=== PATIENT | female | born 1955 | race Caucasian/White ===

== ENCOUNTER 2020-09-07 09:09 | Outpatient (REF) | payer MEDICARE, OTHER, SELFPAY ==
--- NOTE | ~2020-09-07 | CT_ITS ---
EXAMINATION: CT LUMBAR SPINE WITHOUT CONTRAST CLINICAL INFORMATION: Low back and left hip pain. COMPARISON: None TECHNIQUE: Axial 2 mm thin and reformatted 2 mm thin sagittal and coronal images of lumbar spine were obtained. This CT examination was performed using dose optimization techniques as appropriate, variously including the following: *Automated exposure control *Adjustment of mA and/or kV according to patient size (this includes techniques or standardized protocols for targeted exams where dose is matched to indication/reason for exam; i.e. extremities or head) *Use of iterative reconstruction technique DLP; 404 mGy-cm FINDINGS: On sagittal reconstructed images there is maintained lumbar lordosis. There is loss of L2-L3, L4-L5 L5-S1 disc heights. There are bilateral pedicular screws at L4-S1 vertebra with interconnecting jeanne for fusion. The hardware is intact. At L1-L2 disc level the thecal sac is capacious. There is minimal bulge with no spinal canal stenosis. The neural foramina are patent bilaterally. L2-L3 disc level there is a broad-based disc bulge with mild facet joint hypertrophy resulting in mild canal stenosis. There is vacuum disc phenomena. The neural foramina are patent. At L3-L4 disc level there is a broad-based diffuse bulge, ligamentum flavum hypertrophy and mild facet joint hypertrophy resulting in concentric canal stenosis. The neural foramina are mildly narrowed bilaterally. At L4-L5 disc level there is bilateral laminectomy with capacious thecal sac. No underlying disc bulge or herniation seen. The neural foramina are patent. At L5-S1 disc level there is bilateral laminectomy with capacious thecal sac. No underlying disc bulge or spinal stenosis. The neural foramina are patent bilaterally. There is diffuse osteopenia. No lytic or sclerotic process seen. The paravertebral soft tissues are normal. CT/CT lumbar spine wo con IMPRESSION: L4-S1 fusion with posterior hardware and bilateral L4-L5 laminectomies. There is capacious thecal sac. The hardware appears intact. Mild circumferential canal stenosis L3-L4 disc level and minimal spondylosis at L2-L3 disc levels as described above.
[2020-09-07 10:41] LABS: Alanine Aminotransferase 15 U/L (0-31); Anion Gap 14 (12-20); Aspartate Amino Transferase 20 U/L (5-31); Blood Urea Nitrogen 8 mg/dL (9-16); Calcium 9.9 mg/dL (8.4-10.2); Carbon Dioxide 29 mmol/L (22-29); Chloride 99 mmol/L (96-108); Cholesterol 207 mg/dL; Estimated Glomerular Filt Rate 53; Glucose Fasting 107 mg/dL (60-99); HDL Cholesterol 98 mg/dL; LDL Cholesterol Calculated 95 mg/dl; Potassium 4.6 mmol/L (3.3-5.1); Sodium 137 mmol/L (135-145); Triglycerides 70 mg/dL
[2020-09-07 10:52] LABS: Free T4 (Free Thyroxine) 1.19 ng/dL (0.71-1.85); Thyroid Stimulating Hormone 0.46 uIU/mL (0.32-4.0)
== END 2020-09-07 09:10 | disposition home or self-care (01) ==
LOC: HO.CT 09:09
PROVIDERS: Absent Provider Internal Medicine Hypertension Specialist; PCP Internal Medicine; Visit Provider Physician Assistant
DX: M25.552 Pain in left hip (principal); M54.5 Low back pain; N12 Tubulo-interstitial nephritis, not specified as acute or chronic; I10 Essential (primary) hypertension; E87.1 Hypo-osmolality and hyponatremia
CPT/HCPCS: 36415; 72131; 80048; 80061; 82310; 84439; 84443; 84450; 84460

== ENCOUNTER 2020-09-12 07:55 | Outpatient (REF) | payer MEDICARE, OTHER, SELFPAY ==
--- NOTE | ~2020-09-12 | MR_ITS ---
MR LUMBAR SPINE WITHOUT AND WITH CONTRAST CLINICAL INFORMATION: Lumbar degenerative disc disease. Low back pain. History of surgery . COMPARISON: Lumbar spine CT 09/07/2020. TECHNIQUE: MRI of the lumbar spine was obtained using routine sequences with and without contrast. Intravenous contrast: Gadavist 6.5 mL FINDINGS: There are 5 nonrib-bearing lumbar-type vertebral bodies. There is grade 1 retrolisthesis of L1 on L2, L2 on L3, L3 on L4, and L4 on L5 and there is grade 1 anterolisthesis of L5 on S1. There are postoperative changes following laminectomy and posterior instrumented fusion at the L4-S1 levels. Interbody graft is also present at L5-S1. There are Modic type I endplate signal changes at L2-L3 and L3-L4. There is no additional bone marrow edema. There are no acute fractures. Conus terminates at the T12-L1 level. T12-L1: There is a superiorly and inferiorly migrating left paracentral disc extrusion that results in mass effect on the traversing left nerve root within the left subarticular zone. Mild narrowing of the central canal. No foraminal stenosis. L1-L2: Diffuse annular disc bulge exhibiting a dorsal annular fissure and mild to moderate bilateral facet arthropathy. No central canal stenosis. Mild bilateral foraminal encroachment. L2-L3: Grade 1 retrolisthesis. Diffuse annular disc bulge and severe bilateral facet arthropathy and ligamentum flavum thickening. There is also a small in fairly migrating central disc extrusion. Findings in concert result in significantly worsening moderate to severe central canal stenosis, severe bilateral subarticular zone stenosis with compression of the traversing L3 nerve roots bilaterally, as well as moderate to severe right and moderate left foraminal stenosis with mass effect on the exiting right greater than left L2 nerve roots. L3-L4: Diffuse annular disc bulge with a superimposed broad-based left paracentral disc protrusion that is increased in size, resulting in increased mass effect on the traversing left greater than right L4 nerve roots within the subarticular zones and mild narrowing of the central canal. Disc osteophyte and facet arthropathy result in moderate to severe left foraminal stenosis with mass effect on the exiting left L3 nerve root that is progressed. L4-L5: Laminectomy changes. Posterior instrumented fusion. Osteophytic ridging. No central canal stenosis. Mild bilateral foraminal encroachment. L5-S1: Laminectomy changes. Posterior instrumented lumbar interbody fusion. Grade 1 anterolisthesis. Osteophytic ridging. Bilateral foraminal stenosis with mass effect on the exiting L5 nerve roots bilaterally, likely improved limitedly assessed secondary to artifact. MR/MR lumbar spine wo/w con IMPRESSION: - Postoperative changes following laminectomy and posterior instrumented fusion at the L4-S1 levels. At L5-S1, there is stable grade 1 anterolisthesis that along with osteophytic ridging results in bilateral foraminal stenosis with mass effect on the exiting L5 nerve roots bilaterally that is improved. - At L3-L4, there has been an increase in size of a broad-based left paracentral disc protrusion that results in mass effect on the traversing left greater than right L4 nerve roots within the subarticular zones. Disc osteophyte and facet arthropathy result in moderate to severe left foraminal stenosis with mass effect on the exiting left L3 nerve root that is progressed. - At L2-L3, grade 1 retrolisthesis and advanced multifactorial degenerative changes result in worsening moderate to severe central canal stenosis, severe bilateral subarticular zone stenosis with compression of the traversing L3 nerve roots bilaterally, as well as moderate to severe right and moderate left foraminal stenosis with mass effect on the exiting right greater than left L2 nerve roots. - At T12-L1, there is a superiorly and inferiorly migrating left paracentral disc extrusion that results in mass effect on the traversing left nerve root within the left subarticular zone. Mild narrowing of the central canal. No foraminal stenosis.
== END 2020-09-12 07:56 | disposition home or self-care (01) ==
LOC: HO.MRI 07:55
PROVIDERS: Visit Provider Neurological Surgery
DX: M51.36 Other intervertebral disc degeneration, lumbar region (principal); M54.5 Low back pain
CPT/HCPCS: 72158; A9585

== ENCOUNTER 2021-10-12 14:41 | Outpatient (REF) | payer MEDICARE, OTHER, SELFPAY ==
--- NOTE | ~2021-10-12 | MM_ITS ---
EXAMINATION: MM SCREENING DIGITAL BREAST TOMOSYNTHESIS, BILATERAL CLINICAL INFORMATION: Screening. Asymptomatic. Remote history reduction mammoplasty, 1988. The lifetime risk of breast cancer based on the Tyrer-Cuzick Model is 4%. COMPARISON: Mammography: 11/18/2019, 08/18/2018, 07/30/2017 TECHNIQUE: Digital breast tomosynthesis is performed in both the craniocaudal and mediolateral oblique views along with computer-aided detection (CAD). Synthesized 2D images are generated from the tomosynthesis. FINDINGS: There are scattered areas of fibroglandular density (ACR BI-RADS breast composition Category b). Parenchymal pattern is similar to prior studies. There is no significant mass or interval architectural abnormality or abnormal calcifications. Again, there are old postsurgical changes with bilateral minor scarring and round calcifications consistent with the reduction mammoplasty. There is some fat necrosis central left breast in the scar with dystrophic calcification. Scattered bilateral asymmetries are stable. No developing density. No significant changes. MM/MM tomosynthesis screening BI IMPRESSION: No mammographic evidence of malignancy. ASSESSMENT: BI-RADS 2: Benign RECOMMENDATION: Routine annual mammography screening. This patient's information was entered into a reminder system with a target due date for their next mammogram.
== END 2021-10-12 14:42 | disposition home or self-care (01) ==
LOC: HO.MAMMO 14:41
PROVIDERS: PCP Internal Medicine; Visit Provider Internal Medicine
DX: Z12.31 Encounter for screening mammogram for malignant neoplasm of breast (principal)
CPT/HCPCS: 77063; 77067

== ENCOUNTER 2021-10-28 07:23 | Outpatient (REF) | payer MEDICARE, OTHER, SELFPAY ==
[2021-10-28 09:10] LABS: Anion Gap 11 (12-20); Blood Urea Nitrogen 12 mg/dL (9-16); Calcium 9.5 mg/dL (8.4-10.2); Carbon Dioxide 27 mmol/L (22-29); Chloride 102 mmol/L (96-108); Estimated Glomerular Filt Rate 55; Potassium 4.7 mmol/L (3.3-5.1); Sodium 135 mmol/L (135-145)
[2021-10-28 09:51] LABS: Vitamin D 25-OH Total 14.2 ng/mL (>30)
[2021-10-28 11:10] LABS: Creatinine Urine 24.14 mg/dL; Total Protein Urine Random < 7 mg/dL (<12)
[2021-10-30 16:57] LABS: Calcium (PTHI) 9.5 mg/dL (8.6-10.4); PTHI 48 pg/mL (16-77)
== END 2021-10-28 07:24 | disposition home or self-care (01) ==
LOC: HO.LAB 07:23
PROVIDERS: Absent Provider Internal Medicine Hypertension Specialist; PCP Internal Medicine; Visit Provider Internal Medicine Nephrology
DX: N18.31 Chronic kidney disease, stage 3a (principal)
CPT/HCPCS: 36415; 80051; 82306; 82310; 82565; 83970; 84156; 84520

== ENCOUNTER 2022-07-07 07:47 | Outpatient (REF) | payer MEDICARE, OTHER, SELFPAY ==
[2022-07-07 09:22] LABS: Cholesterol 224 mg/dL; HDL Cholesterol 91 mg/dL; LDL Cholesterol Calculated 121 mg/dl; Triglycerides 62 mg/dL
[2022-07-07 09:31] LABS: Free T4 (Free Thyroxine) 1.13 ng/dL (0.71-1.85); Thyroid Stimulating Hormone 2.28 uIU/mL (0.32-4.0)
== END 2022-07-07 07:48 | disposition home or self-care (01) ==
LOC: HO.LAB 07:47
PROVIDERS: PCP Internal Medicine; Visit Provider Internal Medicine
DX: E03.9 Hypothyroidism, unspecified (principal); E78.5 Hyperlipidemia, unspecified
CPT/HCPCS: 36415; 80061; 84439; 84443

== ENCOUNTER 2022-12-04 10:13 | Outpatient (REF) | payer MEDICARE, OTHER, SELFPAY ==
[2022-12-04 10:28] LABS: MANUAL DIFF FLAG NO
[2022-12-04 10:59] LABS: Basophils Percent Auto 0.5 % (0-2); Eosinophils Absolute Auto 0.1 X10*3/uL (0.0-0.4); Eosinophils Percent Auto 0.9 % (0-4); Hematocrit 41.9 % (37.0-47.0); Hemoglobin 13.6 g/dl (12.0-16.0); Imm Gran Pct Auto 1.1 % (0.0-0.4); Lymphocytes Absolute Auto 2.1 X10*3/uL (1.2-4.9); Lymphocytes Percent Auto 23.3 % (20-40); Mean Corpuscular HGB Conc 32.5 g/dl (31.0-35.0); Mean Corpuscular Hemoglobin 30.3 pg (27.0-33.0); Mean Corpuscular Volume 93.3 fL (80.0-98.0); Mean Platelet Volume 9.4 fL (9.4-12.3); Monocytes Absolute Auto 0.6 X10*3/uL (0.1-1.2); Monocytes Percent Auto 6.8 % (2-11); Neutrophils Percent Auto 67.4 % (45-73); Platelet Count 400 X10*3/uL (160-400); Red Blood Count 4.49 X10*6/uL (4.20-5.50); Red Cell Distribution Width 12.7 % (11.0-16.0); White Blood Count 8.8 X10*3/uL (4.8-10.8)
[2022-12-04 11:05] LABS: Estimated Average Glucose 108 mg/dL; Hemoglobin A1c % 5.4 % (<6.0)
[2022-12-04 11:42] LABS: Alanine Aminotransferase 12 U/L (0-31); Anion Gap 10 (12-20); Aspartate Amino Transferase 18 U/L (5-31); Blood Urea Nitrogen 10 mg/dL (9-16); Calcium 9.8 mg/dL (8.4-10.2); Carbon Dioxide 30 mmol/L (22-29); Chloride 101 mmol/L (96-108); Cholesterol 220 mg/dL (<200); Estimated Glomerular Filt Rate 52; Glucose Fasting 94 mg/dL (60-99); HDL Cholesterol 92 mg/dL (>40); LDL Cholesterol Calculated 106 mg/dL (<100); Potassium 4.3 mmol/L (3.3-5.1); Sodium 137 mmol/L (135-145); Triglycerides 114 mg/dL (<150)
[2022-12-04 11:58] LABS: Free T4 (Free Thyroxine) 1.04 ng/dL (0.71-1.85)
== END 2022-12-04 10:14 | disposition home or self-care (01) ==
LOC: HO.LAB 10:13
PROVIDERS: PCP Internal Medicine; Visit Provider Internal Medicine
DX: M85.89 Other specified disorders of bone density and structure, multiple sites (principal); I10 Essential (primary) hypertension; E03.9 Hypothyroidism, unspecified; E78.5 Hyperlipidemia, unspecified
CPT/HCPCS: 36415; 80048; 80061; 82306; 83036; 84439; 84443; 84450; 84460; 85025

== ENCOUNTER 2022-12-07 10:46 | Outpatient (AMB) | payer MEDICARE, OTHER, SELFPAY ==
--- NOTE | 2022-12-07 11:33 | MHC.PC.OV ---
Vital Signs 12/07/22 11:38 Height 5 ft 5 in Weight 142 lb BMI 23.6 BP 140/74 H Blood Pressure Location Rt brachial Position Sitting Pulse 67 Pulse Source Pulse Oximeter Pulse Oximetry (%) 96 Oxygen Delivery Method Room Air Intake Visit Reasons: PE & pre-op (01/01)Lt eye Vitrectomy Dr. Davis Intake Note: Pt is here today for her pre-op for Lt eye vitrectomy on 01/[address] Davis Allergies cephalexin [From Keflex] Allergy (Mild, Verified 12/07/22 11:52) RASH Medication List - Last Reconciled 12/07/22 by Dominique Saha MD acetaminophen (Tylenol Extra Strength) 500 mg PO Q6H PRN acetaminophen 500 mg PO Q6H PRN amlodipine 5 mg PO DAILY atorvastatin 20 mg PO DAILY bupropion HCl 600 mg PO DAILY captopril 25 mg PO BID cholecalciferol (vitamin D3) 50 mcg PO DAILY docusate sodium (Stool Softener) 100 mg PO DAILY lamotrigine 25 mg PO DAILY levothyroxine (Synthroid) 75 mcg PO QAM lorazepam 1 mg PO DAILY nortriptyline 50 mg PO BEDTIME polyethylene glycol 3350 (Miralax) 17 grams PO DAILY psyllium husk (with sugar) 2 gram (Metamucil Fiber Thin) 2 wafers PO DAILY Tobacco use date assessed: 12/07/22 Fall risk assessment: 1 Fall in past year Last assessed Fall Risk: 12/07/22 Dental Screening Dental Screen Date: 12/07/22 Did you have a dental visit in the last 12 months?: Yes Did you have a dental problem in the last 6 months where you did not have access to dental care?: No Was dental information given to patient?: Patient has dentist HPI PE & pre-op (01/01)Lt eye Vitrectomy Dr. Davis HPI Details 67-year-old lady with hypothyroidism, degenerative disc disease of her cervical spine, depression and anxiety, hypertension and dyslipidemia, here today for her annual physical exam as well as a preoperative examination for a left vitrectomy to be done on 01/01/[address] Davis. She has been feeling well, with no new complaints at present time, had recent fasting labs done which showed thyroid levels lipids are within normal limits. She currently sees her psychiatrist for her anxiety depression, currently stable and controlled on present treatment PFSH Medical History Acquired hypothyroidism DDD (degenerative disc disease), cervical Depression with anxiety Dyslipidemia Essential hypertension Failed back syndrome of lumbar spine Lumbar radiculopathy, acute Osteopenia of multiple sites Surgical History H/O cervical spine surgery H/O reduction mammoplasty H/O vitrectomy History of arthroplasty of right shoulder History of cholecystectomy Hx of cataract surgery Status post lumbar spine operative procedure for decompression of spinal cord Status post lumbar spine surgery for decompression of spinal cord Family History Father Peripheral vascular disease Myocardial infarction Essential hypertension Social History Housing: House Alcohol intake: never Patient Tobacco Use Status: Former Tobacco user e-Cigarette/Vaping Use: Never Used service: No Current occupational status: retired Cognitive needs: No Hearing needs: No Vision needs: Yes Questionnaire PHQ-9 Over the last 2 weeks, how often have you been bothered by any of the following problems? 1. Little interest or pleasure in doing things: not at all 2. Feeling down, depressed, or hopeless: not at all 3. Trouble falling or staying asleep, or sleeping too much: several days 4. Feeling tired or having little energy: not at all 5. Poor appetite or overeating: not at all 6. Feeling bad about yourself - or that you are a failure or have let yourself or your family down: not at all 7. Trouble concentrating on things, such as reading the newspaper or watching television: not at all 8. Moving or speaking so slowly that other people could have noticed. Or the opposite - being so fidgety or restless that you have been moving around a lot more than usual: not at all 9. Thoughts that you would be better off or of hurting yourself in some way: not at all Total score: 1 Depression Screening Interpretation: Positive Depression Screening Follow-up: Existing condition and In treatment (Followed by Mynor Rodriguez) 35240 - PHQ-9 Billing: Yes Source: Developed by Drs. Carlos Hernandez, Evette Adair, Godwin Roberts and colleagues, with an educational costa from [employer]. Thrive Questionnaire Date Thrive assessed: 12/07/22 I am a: Patient What is your living situation today?: I have a steady place to live Within the past 12 months, did the food you bought not last and you didn't have the money to get more?: Never true Within the past 12 months, did you worry whether your food would run out before you got money to buy more?: Never true Do you have trouble paying for medicines?: No Do you have trouble getting transportation to medical appointments?: No Do you have trouble paying your heating and electricity bill?: No Do you have trouble taking care of your child, family member or friend?: No Do you have trouble with day-to-day activities such as bathing, preparing meals, shopping, managing finances, etc.?: No Are you currently unemployed and looking for a job?: No Are you interested in more education?: No Please select the resources that you would like help with: None AUDIT C Alcohol Use Questionnaire (AUDIT-C) 1. How often do you have a drink containing alcohol?: Never Total Score: 0 PRATIK-7 AMB Questionnaire PRATIK-7 Date PRATIK - 7 assessed: 12/07/22 Feeling nervous, anxious, or on edge: 0 = Not at all Not being able to stop or control worryin = Not at all Worrying too much about different things: 1 = Several days Trouble relaxin = Not at all Being so restless that it is hard to sit still: 0 = Not at all Becoming easily annoyed or irritable: 0 = Not at all Feeling afraid as if something awful might happen: 0 = Not at all Total PRATIK-7 score (0-4 normal; 5-9 mild; 10-14 moderate; 15-21 severe): 1 Source: Developed by Drs. Carlos Hernandez, Eevtte Adair, Godwin Roberts and colleagues, with an educational costa from [employer]. PRATIK-7 Assessment Billing PRATIK-7 Assessment Tool: PRATIK-7 Assessment 46386 Review of Systems Const Denies fever(s), Denies headache(s), Denies lethargy and Denies weakness Eyes Reports change in vision and Denies eye discharge ENT Denies dizziness, Denies headache(s), Denies nasal congestion, Denies nasal discharge and Denies sore throat Card Denies chest pain, Denies irregular heart rhythm, Denies lightheadedness and Denies dyspnea Resp Denies chest congestion, Denies cough and Denies dyspnea GI Denies abdominal pain, Denies change in bowel habits and Denies heartburn Reports no additional complaints Musc Reports stiffness Skin/Breast Denies lesions and Denies rash Neuro Denies dizziness, Denies headache(s) and Denies weakness Psych Reports no additional complaints and Reports as per HPI Endo Reports no additional complaints, Denies polydipsia and Denies polyuria Gautam/Lymph Denies easy bleeding and Denies easy bruising Aller/Immun Reports no additional complaints Physical exam (Primary Care) Vital Signs: Last Vital Signs Pulse 67 12/07/22 11:38 BP 140/74 H 12/07/22 11:38 Pulse Ox 96 12/07/22 11:38 Oxygen Delivery Method Room Air 12/07/22 11:38 BMI result Body Mass Index 23.6 Tobacco/Smoking Status: Tobacco use Status Tobacco use date assessed 12/07/22 12/07/22 11:44 Patient Tobacco Use Status Former Tobacco user 12/07/22 11:44 e-Cigarette/Vaping Use Never Used 12/07/22 11:44 PHQ-9: PHQ-9 Score PHQ-9: Total score 1 12/11/22 00:50 Depression Screening Interpretation: Positive Depression Screening Follow-up: Existing condition and In treatment (Followed by Mynor Rodriguez) Thrive Assessment: Date of Thrive Assessment Date Thrive assessed 12/07/22 12/11/22 00:50 Const General: healthy appearing, comfortable, no acute distress and well developed Nutritional Appearance: average body habitus Orientation/consciousness: patient oriented x3 HENMT Head: Yes normocephalic Ears: hearing grossly normal bilaterally, external ears normal, TM's normal bilaterally and EAC's normal General nose exam: Normal external nose present Face and sinus: Yes face symmetric Mouth: Normal oral and palatal mucosa present, oropharynx normal and moist mucous membranes Eyes General: appearance normal, both eyes and all related structures Neck Neck: Yes full ROM, Yes no lymphadenopathy and Yes supple Thyroid: Thyroid normal Chest Chest palpation & inspection: normal inspection of the chest Breast/axilla palpation: normal palpation of the breasts Resp Effort & Inspection: normal respiratory effort and able to speak in complete sentences Auscultation: clear to auscultation bilaterally Cardio Rate: regular rate Rhythm: regular rhythm Heart sounds: S1 normal heart sound present and S2 normal heart sound present GI Inspection: Yes normal to inspection Palpation (GI): Soft to palpation, nontender, no guarding and no masses General: Yes no CVA tenderness Back/Spine/Pelvis Back: no CVA tenderness and No back tenderness Skin General skin exam: no rashes or lesions noted Neuro General: patient oriented x3, gait normal, tone normal, moves all extremities, Normal light touch and pain sensation, no focal motor deficits and CN's II-XI intact bilaterally Cognition (Neuro): normal cognition Gait exam (Neuro): Normal gait present Extrem General: Yes normal to inspection, Yes full ROM, Yes no joint enlargement, Yes no clubbing, cyanosis or edema and Yes normal gait Psych Appearance: grossly normal and well kempt Mental Status: mental status grossly normal Speech and movement: Normal speech and movement present Affect: normal affect Attitude: cooperative Thought process: Normal thought process present Thought content: Normal thought content present Results Reviewed Results Reviewed: ENTERED: 12/04/22-[address]: ORDERED: CBC Auto Diff Test Result Flag Reference Site WBC 8.8 4.8-10.8 X10*3/uL RBC 4.49 4.20-5.50 X10*6/uL HGB 13.6 12.0-16.0 g/dl HCT 41.9 37.0-47.0 % MCV 93.3 80.0-98.0 fL MCH 30.3 27.0-33.0 pg MCHC 32.5 31.0-35.0 g/dl RDW 12.7 11.0-16.0 % PLT 400 160-400 X10*3/uL MPV 9.4 9.4-12.3 fL Neut Pct Auto 67.4 45-73 % ImGran Pct Auto 1.1 H 0.0-0.4 % Lymp Pct Auto 23.3 20-40 % [place] Pct Auto 6.8 2-11 % Eos Pct Auto 0.9 0-4 % Baso Pct Auto 0.5 0-2 % NRBC Pct Auto 0.0 0.0-0.2 /100WBC ANC Neut Abs # 6.0 2.0-8.3 x10*3/uL ImGran Abs Auto 0.10 H 0.00-0.03 X10*3/uL Lymph Abs Auto 2.1 1.2-4.9 X10*3/uL [place] Abs Auto 0.6 0.1-1.2 X10*3/uL Eos Abs Auto 0.1 0.0-0.4 X10*3/uL Baso Abs Auto 0.0 0.0-0.2 X10*3/uL NRBC Abs Auto 0.000 0.0-0.012 X10*3/uL ENTERED: 12/04/22-[address]: ORDERED: Met Prof Fast, AST, ALT, Lipid Panel, Vitamin D 25-OH, Free T4, TSH Test Result Flag Reference Site Sodium 137 135-145 mmol/L Potassium 4.3 3.3-5.1 mmol/L CL 101 96-108 mmol/L CO2 30 H 22-29 mmol/L Gap 10 L 12-20 BUN 10 9-16 mg/dL Creat 1.05 0.5-1.4 mg/dL EGFR 52 NOTE: For -Swedish individuals, multiply the result by 1.210. Chronic Kidney Disease: Estimated GFR < 60 mL/min/1.73m2 Severe Kidney Disease: Estimated GFR < 15 mL/min/1.73m2 FBS 94 60-99 mg/dL CA 9.8 8.4-10.2 mg/dL AST (GOT) 18 5-31 U/L ALT (GPT) 12 0-31 U/L Triglyceride 114 <150 mg/dL Desirable Triglyceride: less than 150 mg/dL Borderline High Triglyceride 150-199 mg/dL High Triglyceride: 200-499 mg/dL Very High Triglyceride: greater than or equal to 5OO mg/dL Cholesterol 220 H <200 mg/dL Desirable Cholesterol: less than 200 mg/dL Borderline High Cholesterol: 200-239 mg/dL High Cholesterol: greater than 239 mg/dL LDL Calculated 106 H <100 mg/dL Desirable LDL: less than 100 mg/dL Near Optimal/Above Optimal LDL: 110-129 mg/dL Borderline High LDL: 130-159 mg/dL High LDL: 160-189 mg/dL Very High LDL: greater than or equal to 190 mg/dL HDL 92 >40 mg/dL Desirable HDL: greater than 40 mg/dL Note: This HDL assay may give artificially low results in patients with liver disease. Vit D 25-OH Tot 53.0 >30 ng/mL Health Based Reference Values* < 20 ng/mL Deficient 20-30 ng/mL Insufficient > 30 ng/mL Sufficient *Mirna CAMPA. N Engl J Med. 2007;[id number]:266-280 Care must be taken in interpreting Vitamin D results from different laboratories and methodologies. Published data demonstrated that results from patients undergoing hemodialysis may show a negative bias when tested with various automated 25-OH vitamin D assays when compared to LC-MS/MS. When testing samples from patients whose predominant form of Vitamin D is Vitamin D2, such as patients receiving Vitamin D2 supplementation, results that are subtherapeutic should be confirmed with another method such as LC-MS/MS. Free T4 1.04 0.71-1.85 ng/dL TSH 3rd Gen. 2.20 0.32-4.0 uIU/mL TSH 3rd Generation ([facility]) Assessment and Plan Assessment & Plan (1) Annual visit for general adult medical examination with abnormal findings: Code(s): Z00.01 - Encounter for general adult medical examination with abnormal findings Plan: Reviewed latest fasting labs with patient. Continue with regular dental visit every 6 months and regular eye exams, at least every 2 years. Take adequate calcium in diet and vitamin-D 3 at 2000 IU per cap once a day, in addition to weight-bearing exercises to help maintain good muscle tone and weight control. continue to do self-breast exam, and yearly mammogram. Up-to-date with all her vaccinations and reminded to get her flu shot and COVID vaccine booster soon. She is also up-to-date with her colonoscopy screening (2) Preoperative examination: Code(s): Z01.818 - Encounter for other preprocedural examination Plan: 67 year old lady with hypertension, dyslipidemia hypothyroidism, and chronic neck and low back pain, here for pre-op clearance for left vitrectomy scheduled for 01/01/[address] Davis. Pt is without history of pulmonary disease, denies any pulmonary or cardiac symptoms. Pre-op exam is unremarkable. Patient has a low cardiac risk index for proposed surgery (3) Acquired hypothyroidism: Code(s): E03.9 - Hypothyroidism, unspecified Plan: Continue current dose of levothyroxine at 75 mcg daily, with latest thyroid levels within normal, a thyroid ultrasound was ordered (4) Osteopenia of multiple sites: Code(s): M85.89 - Other specified disorders of bone density and structure, multiple sites Plan: Continued regular weight-bearing exercise, take adequate calcium dietary sources and continue with vitamin-D 3 supplements , at least 2000 units daily (5) Lumbar radiculopathy, acute: Code(s): M54.16 - Radiculopathy, lumbar region Plan: Refill sent on her ibuprofen prescription to take only as needed for severe pain. alternate taking it with Tylenol extra-strength 500 per tab (6) DDD (degenerative disc disease), cervical: Code(s): M50.30 - Other cervical disc degeneration, unspecified cervical region (7) Dyslipidemia: Code(s): E78.5 - Hyperlipidemia, unspecified Plan: Fasting lipid profile done recently showed results within normal limits, continue on atorvastatin 20 mg daily (8) Essential hypertension: Code(s): I10 - Essential (primary) hypertension Plan: Continue with captopril 25 mg twice a day, and amlodipine 5 mg daily. Patient able to tolerate medication well, with no further adverse effects noted. Reinforced importance of following a low sodium diet, getting regular exercise, and lowering stress levels. (9) Depression with anxiety: Code(s): F41.8 - Other specified anxiety disorders Plan: Stable controlled on current treatment, sees her psychiatrist numbers regularly Orders: Orders US thyroid 12/07/22 E03.9 - Hypothyroidism, unspecified Medications: New ibuprofen 800 mg PO Q12H PRN 60 tabs 0RF pain, moderate Coding Level of Care Code Est Pt Prev Care >65y(69341) Diagnoses Annual visit for general adult medical examination with abnormal findings Z00.01 Preoperative examination Z01.818 Acquired hypothyroidism E03.9 Osteopenia of multiple sites M85.89 Lumbar radiculopathy, acute M54.16 DDD (degenerative disc disease), cervical M50.30 Dyslipidemia E78.5 Essential hypertension I10 Depression with anxiety F41.8 Additional Codes PRATIK-7 Assessment Billing - PRATIK-7 Assessment Tool: PRATIK-7 Assessment [id number] ([id number])
[2022-12-07 11:38] VITALS: BP 140/74; PULSE 67; O2SAT 96; BMI 23.6
== END 2022-12-07 12:16 | disposition home or self-care (01) ==
PROVIDERS: Visit Provider Internal Medicine
DX: E03.9 Hypothyroidism, unspecified (principal); I10 Essential (primary) hypertension; F41.8 Other specified anxiety disorders; Z01.818 Encounter for other preprocedural examination; M85.89 Other specified disorders of bone density and structure, multiple sites; M54.16 Radiculopathy, lumbar region; M50.30 Other cervical disc degeneration, unspecified cervical region; E78.5 Hyperlipidemia, unspecified
CPT/HCPCS: 99214

== ENCOUNTER 2022-12-14 11:20 | Outpatient (REF) | payer MEDICARE, OTHER, SELFPAY ==
--- NOTE | ~2022-12-14 | US_ITS ---
EXAMINATION: US THYROID CLINICAL INFORMATION: Hypothyroidism, unspecified. COMPARISON: None available. TECHNIQUE: Linear transducer grayscale and color Doppler examination with attention to the region of the thyroid. FINDINGS: SIZE: Measurements of the thyroid lobes and nodules are given in sagittal, anteroposterior and transverse dimensions respectively. Right Thyroid Lobe: 4.2 x 0.9 x 0.9 cm, volume 1.8 mL. Parenchyma: The gland echotexture is homogeneous. Thyroid vascularity is normal. Left Thyroid Lobe: 3.9 x 1.0 x 1.3 cm, volume 2.5 mL. Parenchyma: The gland echotexture is homogeneous. Thyroid vascularity is normal. Isthmus: 0.3 cm in maximum AP dimension. No focal thyroid nodule is seen. NODES: No lymphadenopathy is seen in the tissue surrounding the thyroid gland. US/US thyroid IMPRESSION: Unremarkable examination. ACR TI-RADS RECOMMENDATION REFERENCE: Ultrasound-guided fine-needle aspiration, followup ultrasound, no further follow up. * TR1 (0 point) and TR2 (2 points): No FNA or follow up. * TR3 (3 points): FNA if more than or equal to 2.5 cm in maximum dimension, followup ultrasound in 1, 3 and 5 years if 1.5 to 2.4 cm in maximum dimension. * TR4 (4-6 points): FNA if more than or equal to 1.5 cm in maximum dimension, followup ultrasound in 1, 2, 3 and 5 years if 1 to 1.4 cm in maximum dimension. * TR5 (more than or equal to 7 points): FNA if more than or equal to 1 cm in maximum dimension, followup ultrasound every year for 5 years if 0.5 to 0.9 cm in maximum dimension. * TR3, TR4 or TR5 nodules that are below the size threshold for followup receive no follow up.
== END 2022-12-14 11:21 | disposition home or self-care (01) ==
LOC: HO.HMGCX 11:20
PROVIDERS: PCP Internal Medicine; Visit Provider Internal Medicine
DX: E03.9 Hypothyroidism, unspecified (principal)
CPT/HCPCS: 76536

== ENCOUNTER 2023-12-05 11:47 | Outpatient (REF) | payer MEDICARE, SELFPAY ==
[2023-12-05 13:52] LABS: Alanine Aminotransferase 23 U/L (0-31); Anion Gap 11 (12-20); Aspartate Amino Transferase 30 U/L (5-31); Blood Urea Nitrogen 9 mg/dL (9-16); Calcium 9.9 mg/dL (8.4-10.2); Carbon Dioxide 28 mmol/L (22-29); Chloride 102 mmol/L (96-108); Cholesterol 208 mg/dL (<200); Estimated Glomerular Filt Rate 54; Glucose Fasting 96 mg/dL (60-99); HDL Cholesterol 92 mg/dL (>40); LDL Cholesterol Calculated 102 mg/dL (<100); Potassium 3.9 mmol/L (3.3-5.1); Sodium 137 mmol/L (135-145); Triglycerides 72 mg/dL (<150)
[2023-12-05 13:56] LABS: Free T4 (Free Thyroxine) 1.09 ng/dL (0.71-1.85); Thyroid Stimulating Hormone 1.23 uIU/mL (0.32-4.0); Vitamin D 25-OH Total 68.8 ng/mL (>30)
== END 2023-12-05 11:48 | disposition home or self-care (01) ==
LOC: HO.HMGCLDS 11:47
PROVIDERS: PCP Internal Medicine; Visit Provider Internal Medicine
DX: I10 Essential (primary) hypertension (principal); E03.9 Hypothyroidism, unspecified; E78.5 Hyperlipidemia, unspecified; M85.89 Other specified disorders of bone density and structure, multiple sites; Z78.0 Asymptomatic menopausal state
CPT/HCPCS: 36415; 80048; 80061; 82306; 84439; 84443; 84450; 84460

== ENCOUNTER 2023-12-10 09:23 | Outpatient (AMB) | payer MEDICARE, OTHER, SELFPAY ==
--- NOTE | 2023-12-10 09:50 | MHC.PC.OV ---
Vital Signs 12/10/23 10:13 Height 5 ft 6 in Weight 149 lb BMI 24.0 BP 140/80 H Blood Pressure Location Rt brachial Position Sitting Pulse 85 Pulse Source Pulse Oximeter Pulse Oximetry (%) 99 Oxygen Delivery Method Room Air Intake Visit Reasons: Annual PE Intake Note: Pt is here today for her PE: Last mammogram 10/12/21, colonoscopy 12/22/18 Allergies cephalexin [From Keflex] Allergy (Mild, Verified 12/10/23 10:23) RASH Medication List - Last Reconciled 12/10/23 by Dominique Saha MD acetaminophen (Tylenol Extra Strength) 500 mg PO Q6H PRN amlodipine 5 mg PO DAILY atorvastatin 20 mg PO DAILY bupropion HCl XL 600 mg PO DAILY captopril 25 mg PO BID cholecalciferol (vitamin D3) 50 mcg PO DAILY docusate sodium (Stool Softener) 100 mg PO DAILY ibuprofen 800 mg PO Q12H PRN lamotrigine 50 mg PO DAILY levothyroxine (Synthroid) 75 mcg PO QAM lorazepam 1 mg PO DAILY nortriptyline 50 mg PO BEDTIME polyethylene glycol 3350 (Miralax) 17 grams PO DAILY psyllium husk (with sugar) 2 gram (Metamucil Fiber Thin) 2 wafers PO DAILY Tobacco use date assessed: 12/10/23 Fall risk assessment: 1 Fall in past year Last assessed Fall Risk: 12/10/23 Dental Screening Dental Screen Date: 12/10/23 Did you have a dental visit in the last 12 months?: Yes Did you have a dental problem in the last 6 months where you did not have access to dental care?: No Was dental information given to patient?: Patient has dentist HPI Annual PE HPI Details 68-year-old lady with past medical history for dyslipidemia, hypertension, acquired hypothyroidism, depression with anxiety, degenerative disc disease in cervical and lumbar spine, with failed back syndrome and osteopenia at multiple sites, here today for physical exam. She is overdue for her screening mammogram, last done in 2021. Had her last colonoscopy in [address] Roche with normal findings, repeat due again in 2028. Previously was being seen by [facility] endocrine for her osteopenia and had Forteo in the past as well as Reclast . Her treatment was held on last visit as her vitamin-D level was very low and she was going to [place] at that time to be staying there for 6 months. Patient however did not follow-up last year [facility] Medical History Osteopenia of multiple sites Failed back syndrome of lumbar spine Lumbar radiculopathy, acute DDD (degenerative disc disease), cervical Dyslipidemia Essential hypertension Acquired hypothyroidism Depression with anxiety Surgical History Hx of cataract surgery H/O vitrectomy Status post lumbar spine operative procedure for decompression of spinal cord H/O cervical spine surgery History of arthroplasty of right shoulder History of cholecystectomy H/O reduction mammoplasty Status post lumbar spine surgery for decompression of spinal cord Family History Father Peripheral vascular disease Myocardial infarction Essential hypertension Social History Housing: House Alcohol intake: never Patient Tobacco Use Status: Former Tobacco user e-Cigarette/Vaping Use: Never Used service: No Current occupational status: retired Cognitive needs: No Hearing needs: No Vision needs: Yes Questionnaire PHQ-9 Over the last 2 weeks, how often have you been bothered by any of the following problems? 1. Little interest or pleasure in doing things: not at all 2. Feeling down, depressed, or hopeless: not at all 3. Trouble falling or staying asleep, or sleeping too much: not at all 4. Feeling tired or having little energy: not at all 5. Poor appetite or overeating: not at all 6. Feeling bad about yourself - or that you are a failure or have let yourself or your family down: not at all 7. Trouble concentrating on things, such as reading the newspaper or watching television: not at all 8. Moving or speaking so slowly that other people could have noticed. Or the opposite - being so fidgety or restless that you have been moving around a lot more than usual: not at all 9. Thoughts that you would be better off or of hurting yourself in some way: not at all Total score: 0 Depression Screening Interpretation: Positive Depression Screening Follow-up: Existing condition and In treatment (Followed by Mynor Rodriguez) Depression Screening Done: Yes Source: Developed by Drs. Carlos Hernandez, Godwin Daniel and colleagues, with an educational costa from [employer]. Thrive Questionnaire Date Thrive assessed: 12/07/22 I am a: Patient What is your living situation today?: I have a steady place to live Within the past 12 months, did the food you bought not last and you didn't have the money to get more?: Never true Within the past 12 months, did you worry whether your food would run out before you got money to buy more?: Never true Do you have trouble paying for medicines?: No Do you have trouble getting transportation to medical appointments?: No Do you have trouble paying your heating and electricity bill?: No Do you have trouble taking care of your child, family member or friend?: No Do you have trouble with day-to-day activities such as bathing, preparing meals, shopping, managing finances, etc.?: No Are you currently unemployed and looking for a job?: I choose not to answer this question Are you interested in more education?: No Please select the resources that you would like help with: None Currently or been in a relationship where the following occur: No concerns reported THRIVE Score: 0 AUDIT C Alcohol Use Questionnaire (AUDIT-C) 1. How often do you have a drink containing alcohol?: Never 3. How often do you have six or more drinks on one occasion?: Never Total Score: 0 PRATIK-7 AMB Questionnaire PRATIK-7 Date PRATIK - 7 assessed: 12/10/23 Feeling nervous, anxious, or on edge: 1 = Several days Not being able to stop or control worryin = Several days Worrying too much about different things: 1 = Several days Trouble relaxin = Several days Being so restless that it is hard to sit still: 1 = Several days Becoming easily annoyed or irritable: 1 = Several days Feeling afraid as if something awful might happen: 1 = Several days Total PRATIK-7 score (0-4 normal; 5-9 mild; 10-14 moderate; 15-21 severe): 7 Source: Developed by Drs. Carlos Hernandez, Godwin Daniel and colleagues, with an educational costa from [employer]. PRATIK-7 Assessment Billing PRATIK-7 Assessment Tool: PRATIK-7 Assessment 73152 Review of Systems Const Denies fever(s), Denies headache(s), Denies lethargy and Denies weakness Eyes Reports change in vision and Denies eye discharge ENT Denies dizziness, Denies headache(s), Denies nasal congestion, Denies nasal discharge and Denies sore throat Card Denies chest pain, Denies irregular heart rhythm, Denies lightheadedness and Denies dyspnea Resp Denies chest congestion, Denies cough and Denies dyspnea GI Denies abdominal pain, Denies change in bowel habits and Denies heartburn Reports no additional complaints Musc Reports stiffness Skin/Breast Denies lesions and Denies rash Neuro Denies dizziness, Denies headache(s) and Denies weakness Psych Reports no additional complaints and Reports as per HPI Endo Reports no additional complaints, Denies polydipsia and Denies polyuria Gautam/Lymph Denies easy bleeding and Denies easy bruising Aller/Immun Reports no additional complaints Physical exam (Primary Care) Vital Signs: Last Vital Signs Pulse 85 12/10/23 10:13 BP 140/80 H 12/10/23 10:13 Pulse Ox 99 12/10/23 10:13 Oxygen Delivery Method Room Air 12/10/23 10:13 BMI result Body Mass Index 24.0 Tobacco/Smoking Status: Tobacco use Status Tobacco use date assessed 12/10/23 12/10/23 09:53 Patient Tobacco Use Status Former Tobacco user 12/10/23 09:53 e-Cigarette/Vaping Use Never Used 12/10/23 09:53 PHQ-9: PHQ-9 Score PHQ-9: Total score 0 12/10/23 10:58 Depression Screening Interpretation: Positive Depression Screening Follow-up: Existing condition and In treatment (Followed by Mynor Rodriguez) Thrive Assessment: Date of Thrive Assessment Date Thrive assessed 12/07/22 12/10/23 09:53 Currently or been in a relationship where the following occur: No concerns reported Advance Care Planning discussion: Completed/Scanned Date of discussion: 12/10/23 Who was present: Patient Forms completed: Health Care Proxy Time spent: 16-45 minutes Actual minutes spent: 16 Const General: healthy appearing, comfortable, no acute distress and well developed Nutritional Appearance: average body habitus Orientation/consciousness: patient oriented x3 HENMT Head: Yes normocephalic Ears: hearing grossly normal bilaterally, external ears normal, TM's normal bilaterally and EAC's normal General nose exam: Normal external nose present Face and sinus: Yes face symmetric Mouth: Normal oral and palatal mucosa present, oropharynx normal and moist mucous membranes Eyes General: appearance normal, both eyes and all related structures Neck Neck: Yes full ROM, Yes no lymphadenopathy and Yes supple Thyroid: Thyroid normal Chest Other: Hard, slightly tender lump at 12:00 o'clock and 1 o'clock position on left breast Chest palpation & inspection: normal inspection of the chest Breast/axilla palpation: normal palpation of the breasts Resp Effort & Inspection: normal respiratory effort and able to speak in complete sentences Auscultation: clear to auscultation bilaterally Cardio Rate: regular rate Rhythm: regular rhythm Heart sounds: S1 normal heart sound present and S2 normal heart sound present GI Inspection: Yes normal to inspection Palpation (GI): Soft to palpation, nontender, no guarding and no masses General: Yes no CVA tenderness Back/Spine/Pelvis Back: no CVA tenderness and No back tenderness Skin General skin exam: no rashes or lesions noted Neuro General: patient oriented x3, gait normal, tone normal, moves all extremities, Normal light touch and pain sensation, no focal motor deficits and CN's II-XI intact bilaterally Cognition (Neuro): normal cognition Gait exam (Neuro): Normal gait present Extrem General: Yes normal to inspection, Yes full ROM, Yes no joint enlargement, Yes no clubbing, cyanosis or edema and Yes normal gait Psych Appearance: grossly normal and well kempt Mental Status: mental status grossly normal Speech and movement: Normal speech and movement present Affect: normal affect Attitude: cooperative Thought process: Normal thought process present Thought content: Normal thought content present Results Reviewed Results Reviewed: Name: Kimberly Sosa Age/Sex: 68/F : 1955 Unit#: [id number] Attend Dr: Dominique Saha MD Re12/05/23 Status: DEP [facility]F [facility] Disch: SPEC : [id number] PRATIMA: 12/05/23 STATUS: COMP REQ : [id number] RECD: 12/05/23-[address]: Dominique Saha MD COMP: 12/05/23-1356 ENTERED: 12/05/23-1154 [facility] DR: ORDERED: Met Prof Fast, AST, ALT, Lipid Panel, Vitamin D 25-OH, Free T4, TSH Test Result Flag Reference Sodium 137 135-145 mmol/L Potassium 3.9 3.3-5.1 mmol/L CL 102 96-108 mmol/L CO2 28 22-29 mmol/L Gap 11 L 12-20 BUN 9 9-16 mg/dL Creat 1.02 0.5-1.4 mg/dL EGFR 54 NOTE: For -[place] individuals, multiply the result by 1.210. Chronic Kidney Disease: Estimated GFR < 60 mL/min/1.73m2 Severe Kidney Disease: Estimated GFR < 15 mL/min/1.73m2 FBS 96 60-99 mg/dL CA 9.9 8.4-10.2 mg/dL AST (GOT) 30 5-31 U/L ALT (GPT) 23 0-31 U/L Triglyceride 72 <150 mg/dL Desirable Triglyceride: less than 150 mg/dL Borderline High Triglyceride 150-199 mg/dL High Triglyceride: 200-499 mg/dL Very High Triglyceride: greater than or equal to 5OO mg/dL Cholesterol 208 H <200 mg/dL Desirable Cholesterol: less than 200 mg/dL Borderline High Cholesterol: 200-239 mg/dL High Cholesterol: greater than 239 mg/dL LDL Calculated 102 H <100 mg/dL Desirable LDL: less than 100 mg/dL Near Optimal/Above Optimal LDL: 110-129 mg/dL Borderline High LDL: 130-159 mg/dL High LDL: 160-189 mg/dL Very High LDL: greater than or equal to 190 mg/dL HDL 92 >40 mg/dL Desirable HDL: greater than 40 mg/dL Note: This HDL assay may give artificially low results in patients with liver disease. Vit D 25-OH Tot 68.8 >30 ng/mL Health Based Reference Values* < 20 ng/mL Deficient 20-30 ng/mL Insufficient > 30 ng/mL Sufficient *Mirna CAMPA. N Engl J Med. 2007;357:266-280 Care must be taken in interpreting Vitamin D results from different laboratories and methodologies. Published data demonstrated that results from patients undergoing hemodialysis may show a negative bias when tested with various automated 25-OH vitamin D assays when compared to LC-MS/MS. When testing samples from patients whose predominant form of Vitamin D is Vitamin D2, such as patients receiving Vitamin D2 supplementation, results that are subtherapeutic should be confirmed with another method such as LC-MS/MS. Free T4 1.09 0.71-1.85 ng/dL TSH 3rd Gen. 1.23 0.32-4.0 uIU/mL TSH 3rd Generation ([facility]) Assessment and Plan Assessment & Plan (1) Annual visit for general adult medical examination with abnormal findings: Code(s): Z00.01 - Encounter for general adult medical examination with abnormal findings Plan: Reviewed recent fasting lab results with patient. Continue with regular dental visit every 6 months and regular eye exams, at least every 2 years. Take adequate calcium in diet and vitamin-D 3 at 2000 IU per cap once a day, in addition to weight-bearing exercises to help maintain good muscle tone and weight control. Instructed to do self-breast exam, and referred for diagnostic mammogram today as several lumps were palpated on left breast. Up-to-date with her screening colonoscopy, reminded to get her yearly flu shot and COVID booster, up-to-date with her pneumonia vaccination, received 1 dose of shingles vaccine, due now for 2nd dose. (2) Mass of multiple sites of left breast: Code(s): N63.20 - Unspecified lump in the left breast, unspecified quadrant Plan: Diagnostic mammogram and left breast ultrasound ordered ordered (3) Osteopenia of multiple sites: Code(s): M85.89 - Other specified disorders of bone density and structure, multiple sites Plan: Bone density scan ordered, continue with taking vitamin-D 3 supplements and reminded to do regular weight-bearing exercise (4) Dyslipidemia: Code(s): E78.5 - Hyperlipidemia, unspecified Plan: Reviewed recent fasting lipid profile with patient with levels within normal limits. Continue atorvastatin 20 mg daily, in addition to adherence to low-cholesterol diet and regular exercise, at least 30 minutes 3 to 4 times a week. Advised patient to make healthy food choices, eat more fruits, vegetables, whole grains, wild caught fish and low-fat dairy. Limit amount of meat and fried or fatty food products, as well as processed foods and fast foods. (5) Essential hypertension: Code(s): I10 - Essential (primary) hypertension Plan: Patient currently being seen by Nephrology, last seen 01/25/2023. She is currently on amlodipine 5 mg daily, captopril 25 mg 1 tablet twice a day, Patient states she has got a follow-up appointment already scheduled (6) Acquired hypothyroidism: Code(s): E03.9 - Hypothyroidism, unspecified Plan: Levels are within normal limits, continue with current dose of levothyroxine at 75 mcg daily in a.m. (7) Depression with anxiety: Code(s): F41.8 - Other specified anxiety disorders Plan: Followed by psychiatry (8) DDD (degenerative disc disease), cervical: Code(s): M50.30 - Other cervical disc degeneration, unspecified cervical region Plan: Currently on nortriptyline 50 mg at bedtime, and ibuprofen 800 mg twice a day as needed together with Tylenol extra-strength (9) Failed back syndrome of lumbar spine: Code(s): M96.1 - Postlaminectomy syndrome, not elsewhere classified (10) Advanced directives, counseling/discussion: Code(s): Z71.89 - Other specified counseling Plan: Initiated the conversation about Advanced Directives. Advanced Directives help patients prepare for current and future decisions about their medical treatment and place of care. Discussed with patient that it is a process where a patients current condition and prognosis are reviewed, their wishes for information regarding their illness are elicited, and likely medical dilemmas are presented and options discussed. Healthcare proxy form completed today. The form can be amended as needed, reviewed yearly and make changes as needed Orders: Orders MM tomosynthesis diagnostic BI 12/10/23 N63.20 - Unspecified lump in the left breast, unspecified quadrant XR DEXA axial skeleton 12/10/23 M85.89 - Other specified disorders of bone density and structure, multiple sites, Z98.890 - Other specified postprocedural states Coding Level of Care Code Est Pt Prev Care >65y(11995) Diagnoses Annual visit for general adult medical examination with abnormal findings Z00.01 Mass of multiple sites of left breast N63.20 Osteopenia of multiple sites M85.89 Dyslipidemia E78.5 Essential hypertension I10 Acquired hypothyroidism E03.9 Depression with anxiety F41.8 DDD (degenerative disc disease), cervical M50.30 Failed back syndrome of lumbar spine M96.1 Advanced directives, counseling/discussion Z71.89 Additional Codes Vital Signs *Quality* - Advance Care Planning discussion: Completed/Scanned ([id number]) Vital Signs *Quality* - Time spent: 16-45 minutes ([id number]) PRATIK-7 Assessment Billing - PRATIK-7 Assessment Tool: PRATIK-7 Assessment [id number] ([id number])
[2023-12-10 10:13] VITALS: BP 140/80; PULSE 85; O2SAT 99; BMI 24.0
== END 2023-12-10 10:50 | disposition home or self-care (01) ==
PROVIDERS: PCP Internal Medicine; Visit Provider Internal Medicine
DX: Z00.00 Encounter for general adult medical examination without abnormal findings (principal); N63.20 Unspecified lump in the left breast, unspecified quadrant; M85.89 Other specified disorders of bone density and structure, multiple sites; E78.5 Hyperlipidemia, unspecified; I10 Essential (primary) hypertension; E03.9 Hypothyroidism, unspecified; F41.8 Other specified anxiety disorders; M50.30 Other cervical disc degeneration, unspecified cervical region; M96.1 Postlaminectomy syndrome, not elsewhere classified
CPT/HCPCS: 1123F; 99397

== ENCOUNTER 2023-12-19 08:30 | Outpatient (REF) | payer MEDICARE, OTHER, SELFPAY ==
--- NOTE | ~2023-12-19 | MM_ITS ---
EXAMINATION: MM DIAGNOSTIC DIGITAL BREAST TOMOSYNTHESIS, BILATERAL US BREAST LIMITED, LEFT MAMMOGRAPHY: CLINICAL INFORMATION: 68-year-old female, history of 2019 breast reduction, ascending with palpable lump left breast 12-1 o'clock axis, noticed x6 months . Per technologist note, no family history of breast CA. COMPARISON: Mammography: 10/12/2021, 11/18/2019, 08/18/2018, 07/30/2017. TECHNIQUE: Digital breast tomosynthesis is performed in both the craniocaudal and mediolateral oblique views along with computer-aided detection (CAD). Synthesized 2D images are generated from the tomosynthesis. FINDINGS: There are scattered areas of fibroglandular density (ACR BI-RADS breast composition Category b). There are parenchymal changes of breast reduction surgery bilaterally, with progressively dystrophic calcifying lobular regions of fat necrosis spanning the mid to anterior one third left breast 11:00 to 1:00 axis. This appears to be related to the marked region of palpable concern, and likely represents the abnormality. There are bilateral skin calcifications. The somewhat nodular parenchymal pattern is stable from 2021 and 2019 exams, with no significant change. No suspicious mass, suspicious grouped calcifications, or new areas of architectural distortion in either breast. No skin or axillary abnormality aside from postoperative change. ULTRASOUND: CLINICAL INFORMATION: As above. COMPARISON: Left breast targeted ultrasound 11/18/2019 for a similar palpable finding left breast. TECHNIQUE: Targeted left breast sonographic evaluation was performed using a high frequency linear transducer. Attention was given to the left breast 11:00 to 1:00 axis, to include the region of palpable concern. Selected archived documentation. FINDINGS: LEFT BREAST: - Grouped oval and rounded foci of partially calcified hypoechoic shadowing fat necrosis spanning the proximal 11:30 to 1:00 axis left breast, correlating with the palpable foci of concern. Grossly, estimated size of the region of fat necrosis is 4.4 x 0.9 x 2.5 cm, although exact measurements are difficult due to complex shape and subject to user variability. No internal color Doppler flow is present. These foci are benign. There are no suspicious abnormalities. MM/MM tomosynthesis diagnostic BI IMPRESSION: -There are no findings suspicious for malignancy in either breast. -Stable appearance of post breast reduction surgical changes bilaterally. -Palpable foci correspond to progressively dystrophic calcifying grouped globular regions of fat necrosis left breast anterior 11:30 o'clock to 1:00 axes and are benign. -Recommend the patient resume routine annual screening mammography. OVERALL ASSESSMENT: Mammography: BI-RADS 2 - Benign Findings Ultrasound: BI-RADS 2 - Benign Findings RECOMMENDATION: 1 year F/U This patient's information was entered into a reminder system with a target due date for their next mammogram. Electronically signed by: Gerardo Hoyos MD 12/19/2023 09:50 AM EDT
== END 2023-12-19 08:31 | disposition home or self-care (01) ==
LOC: HO.MAMMO 08:30
PROVIDERS: PCP Internal Medicine; Referring Provider Internal Medicine; Visit Provider Internal Medicine
DX: N63.25 Unspecified lump in the left breast, overlapping quadrants (principal)
CPT/HCPCS: 76642; 77062; 77066

== ENCOUNTER → 2023-12-19 08:30 | Outpatient (BNV) | payer MEDICARE, OTHER, SELFPAY | PROVIDERS: PCP Internal Medicine; Visit Provider Radiology Diagnostic Radiology | DX: N64.1 Fat necrosis of breast (principal) | CPT/HCPCS: 76642; 77066; G0279 ==

== ENCOUNTER 2024-11-12 06:14 | Outpatient (REF) | payer MEDICARE, OTHER, SELFPAY ==
--- OUTSIDE RECORDS SUMMARY | 2024-11-12 06:16 | XMS_ITS | Clinical Summary ---
Author Organization [facility] Address [address] [place] [id number] Care Team Providers Care Escalator Installer Name Role Phone Dominique Saha MD Primary Care Provider [phone] Social History Tobacco Use Types Packs/Day Years Used Date Smoking Tobacco: Never Assessed Sex and Gender Information Value Date Recorded Sex Assigned at Not on file Gender Identity Not on file Sexual Orientation Not on file Plan of Treatment Health Maintenance Due Date Last Done Comments Hepatitis C Screening 1955 COVID-19 Vaccine (#1) 03/21/1956 Depression Screening 1968 Preventative Health Evaluation 1974 DTap / Tdap / Td (1 - Tdap) 09/20/1975 Colon Cancer Screening (Colonoscopy) 2001 Breast Cancer Screening (Mammogram) 2006 Shingrix-Zoster Vaccine (1 of 2) 2006 Fall Risk Assessment 2021 Osteoporosis Screening (DEXA Scan) 2021 Pneumococcal Vaccine (1 of 1 - PCV) 2021 Influenza Vaccine (#1) 2024 RSV Adult > 60+ Yrs or Pregn ant (1 - 1-dose 75+ series) 09/20/2031 Hepatitis B Vaccines Aged Out No long er eligible based on patient's age to complete this topic RSV Ped < 20 months Aged Out No longe r eligible based on patient's age to complete this topic Care Teams Escalator Installer Relationship Specialty Start Date End Date Dominique Saha MD [address] [place] [address] PCP - General Internal Medicine 08/29/20
--- OUTSIDE RECORDS SUMMARY | 2024-11-12 06:16 | XMS_ITS | Clinical Summary ---
Author Organization [facility] Address [address] [facility] [place] [address] Phone Care Team Providers Care Counter Cutter Name Role Phone Anila Saha MD Primary Care Provider [phone] Allergies Active Allergy Reactions Criticality Noted Date Comments Cephalexin Other (see comments) 09/14/2020 Medications atorvastatin (LIPITOR) 20 MG tablet Take 1 tablet by mouth 1 (one) time each day Active buPROPion XL (WELLBUTRIN XL) 300 MG 24 hr tablet Take 300 mg by mouth in the morning and 300 mg in the evening. Active levothyroxine (SYNTHROID, LEVOTHROID) 75 MCG tablet Take 1 tablet by mouth 1 (one) time each day Active LORazepam (ATIVAN) 1 MG tablet Take 1 tablet by mouth 1 (one) time each day Active nortriptyline (PAMELOR) 10 MG capsule Take 2 capsules by mouth 1 (one) time each day Active polyethylene glycol (GLYCOLAX) 17 GM/SCOOP powder 17 g by Other route Active psyllium (METAMUCIL) 0.52 g capsule Take by mouth 2 (two) times a day Active lamoTRIgine (LaMICtal) 25 MG tablet Take 25 mg by mouth 1 (one) time each day Active flecainide (TAMBOCOR) 50 MG tablet 09/06/2024 Active cholecalciferol (VITAMIN D-3 SUPER STRENGTH) 50 MCG (1999 UT) tablet Take 1 tablet by mouth 1 (one) time each day Active carvedilol (Coreg) 3.125 MG tablet Take 1 tablet (3.125 mg total) by mouth in the morning and 1 tablet (3.125 mg total) in the evening. Take with meals. 180 tablet 09/16/2024 12/16/19 25 Active amLODIPine (NORVASC) 10 MG tablet Take 1 tablet (10 mg total) by mouth 1 (one) time each day 90 tablet 09/23/2024 12/23/19 25 Active Active Problems Problem Noted Date Diagnosed Date Stage 3a chronic kidney disease 02/27/2023 Somatization disorder 10/26/2022 10/26/2022 Postmenopausal osteoporosis 10/26/202210/07 Patient encounter status 10/26/2022 023 Overview (10/26/2022): SOAPP-R: 8 on 05/01/18 Finding of activity of daily living 10/26/2022 10/26/2022 Overview (10/26/2022): initial Oswestry Disability Index: 66% ( crippled ) on 05/01/18; initial [place] Back Pain Scale: 63 on 05/01/18; initial Neck Pain Disability Index: 78% on 05/01/18 Degenerative lumbar spinal stenosis 10/20/2021 10/26/2022 Overview (10/26/2022): Last Assessment & Plan: Ms. Mcfarlane is here to review a 1 year follow-up CT as I was concerned about delayed bone growth after fusion and possible loosening of her hardware. I believe today's scan is stable compared to the one from 10/20/2021 showing mild haloing at the L2 screws but no fracture or backing out of the hardware. The halo is visible on the axials but not so much on the sagittal images and it may be that the gap is actually shrinking. She has continued severe multilevel degenerative disc disease and only partial posterolateral arthrodesis. She states that her preoperative back pain resolved after surgery but she does get spasms when standing even for short periods such as making her bed, doing the dishes or while vacuuming. This is improved with taking Motrin. She also experiences burning in her great toes and in the feet but feels quite well with walking which she now does for about 3-1/2 miles. She is currently taking Pamelor at night for anxiety and does not feel that it addresses any of her nerve pain. I recommended restarting gabapentin which she tried many years ago prior to her for surgery. We will start at 300 mg nightly and increase to 3 times daily if tolerated. She can also follow- up with endocrinology and complete the course of Reclast if they feels appropriate. Hypertensive disorder 09/14/2020 Hyposmolality and/or hyponatremia 09/14/2020 Pyelonephritis 09/14/2020 Encounters Date Type Department Care Team Description 09/22/2024 Refill [facility] [address] [phone] Keyla Padilla 09/16/2024 Office Communication [facility] [address] [phone] Teo Lea MD 09/16/2024 Telephone [facility] [address] [phone] Mary Bowen 09/14/2024 2:00 PM EDT Office Visit [facility] [address] [place] [address] Teo Lea MD Hypertensive disorder (Primary Dx); Stage 3a chronic kidney disease (HCC) 09/12/2024 Orders Only [facility] [address] [phone] Teo Lea MD 08/14/2024 Orders Only [facility] [address] [place] [address] Teo Lea MD Stage 3a chronic kidney disease (HCC); Hypertensive disorder from Last 3 Months Family History Medical History Relation Comments Heart disease Father PVD, CAD, [place] Hypertension Father Relation Status Comments Father Mother Social History Tobacco Use Types Packs/Day Years Used Date Smoking Tobacco: Never Smokeless Tobacco: Never Tobacco Cessation:Counseling Given: Not Answered Alcohol Use Standard Drinks/Week Comments No 0 (1 standard drink = 0.6 oz pur e alcohol) Comments Unknown Sex and Gender Information Value Date Recorded Sex Assigned at Not on file Legal Sex Female 4:53 PM EST Gender Identity Not on file Sexual Orientation Not on file Last Filed Vital Signs Vital Sign Reading Time Taken Comments Blood Pressure 132/88 09/14/2024 1:50 PM EDT Pulse 74 12/16/2023 2:54 PM EDT Temperature - - Respiratory Rate - - Oxygen Saturation 98% 12/16/2023 2:54 PM EDT Inhaled Oxygen Concentration - - Weight 65.7 kg (144 lb 12.8 oz) 09/14/2024 1:50 PM EDT Height 172.7 cm (5' 8 ) 01/23/2023 4:16 PM EDT Body Mass Index 22.02 01/23/2023 4:16 PM EDT Plan of Treatment Upcoming Encounters Date Type Department Care Team (Late st Contact Info) Description 09/13/2025 1:00 PM EDT Office Visit [facility] [address] [place] [address] Teo Lea MD [address] [facility] [address] [place] [phone] Health Maintenance Due Date Last Done Comments Breast Cancer Screening 1955 Pneumococcal Vaccine: 50+ Ye ars (1 of 2 - PCV) 09/20/1975 Colorectal Cancer Screening: Annual FOBT 2005 Colorectal Cancer Screening: Colonoscopy 2005 Colorectal Cancer Screening: Sigmoidoscopy 2005 Influenza Vaccine (#1) 2024 Hepatitis B Vaccine Aged Out No longe r eligible based on patient's age to complete this topic Procedures Procedure Name Priority Date/Time Associated Diagnosis Comments PTH, INTACT Routine 09/12/2024 11:41 AM EDT URINE CULTURE Routine 09/12/2024 11:41 AM EDT MAGNESIUM Routine 09/12/2024 11:41 AM EDT VITAMIN D 25 HYDROXY Routine 09/12/2024 11:41 AM EDT URINE ALBUMIN / CREATININE RATIO Routine 09/12/2024 11:41 AM EDT PROTEIN / CREATININE RATIO, URINE Routine 09/12/2024 11:41 AM EDT CBC Routine 09/12/2024 11:41 AM EDT RENAL FUNCTION PANEL Routine 09/12/2024 11:41 AM EDT URINALYSIS WITH MICROSCOPIC Routine 09/12/2024 11:41 AM EDT RESULT Routine 09/12/2024 11:41 AM EDT MICROSCOPIC EXAMINATION - DO NOT USE Routine 09/12/2024 11:41 AM EDT from Last 3 Months Results * Result (09/12/2024 11:41 AM EDT) Result No growth [facility] 09/12/2024 11:4 1 AM EDT 09/12/2024 us Teo Lea MD LAB MICROBIOLOGY - GENERAL OR DERABLES Final Result [facility] [address] [place] [address] * Microscopic Examination (09/12/2024 11:41 AM EDT) WBC, Urine 0-5 0 - 5 /hpf [facility] RBC, Urine None seen 0 - 2 /hpf [facility] Squamous Epithelial, Urine 0-10 0 - 10 /hpf [facility] Casts None seen None seen /lpf [facility] Bacteria, Urine None seen None seen/Few [facility] 09/12/2024 11:4 1 AM EDT 09/12/2024 Teo Lea MD LAB MICROBIOLOGY - GENERAL OR DERABLES Final Result Performing Organization Address [facility] Co de Phone Number [facility] [address] [place] [address] * (ABNORMAL) Protein, Total, Random Urine w/Creatinine (Protein/Creat Ratio) (09/12/2024 11:41 AM EDT) Creatinine, Ur 35.3 Not Estab. mg/dL [facility] Protein, Ur <4.0 Not Estab. mg/dL [facility] Comment:Verified by repeat analysis Urine Protein/Creatinin e Ratio Comment(A ) 0 - 200 mg/g creat [facility] Comment: This result is below the assay's limit of quantitation indicating a dilute specimen, potentially due to diurnal variation. Consider recollection at a time likely to provide a more concentrated urine. 09/12/2024 11:4 1 AM EDT 09/12/2024 Teo Lea MD LAB URINE ORDERABLES Final Re sult Performing Organization Address [facility] Co de Phone Number [facility] [place] [address] [place] [address] * Urine Albumin / Creatinine Ratio (09/12/2024 11:41 AM EDT) Albumin, Urine <3.0 Not Estab. ug/mL [facility] Albumin/Creatin ine Ratio <8 0 - 29 mg/g creat [facility] Comment: Normal: 0 - 29 Moderately increased: 30 - 300 Severely increased: >300 09/12/2024 11:4 1 AM EDT 09/12/2024 Teo Lea MD LAB URINE ORDERABLES Final Re sult Performing Organization Address City/[facility]/ZIP Co de Phone Number [facility] [address] [place] [address] * Vitamin D 25 Hydroxy (09/12/2024 11:41 AM EDT) Vitamin D, 25-OH, Total 43.8 30.0 - 100.0 ng/mL [facility] Comment: Vitamin D deficiency has been defined by the [place] of Medicine and an Endocrine Society practice guideline as a level of serum 25-OH vitamin D less than 20 ng/mL (1,2). The Endocrine Society went on to further define vitamin D insufficiency as a level between 21 and 29 ng/mL (2). 1. IOM ([place] of Medicine). 2010. Dietary reference intakes for calcium and D. [place]: The National Academies Press. 2. Mirna MF, Yamilet REBOLLAR, Tico MOSS, et al. Evaluation, treatment, and prevention of vitamin D deficiency: an Endocrine Society clinical practice guideline. JCEM. 2010; 96(7):1911-30. 09/12/2024 11:4 1 AM EDT 09/12/2024 Teo Lea MD LAB BLOOD ORDERABLES Final Re sult [facility] [place] [address] [place] [address] * (ABNORMAL) Urinalysis with microscopic (09/12/2024 11:41 AM EDT) Specific [place], Urine 1.008 1.005 - 1.030 [facility] [phone] pH Urine 6.5 5.0 - 7.5 [facility] Color, Urine Yellow Yellow [facility] Appearance Urine Clear Clear [facility] [place] WBC Esterase Urine 2+(A) Negative [facility] Protein, Ur Negative Negative/Tra ce [facility] Glucose, Ur Negative Negative [facility] [phone] Ketones, Urine Negative Negative [facility] [place] Blood Urine Negative Negative [facility] Bilirubin Urine Negative Negative [facility] [place] Urobilinogen Urine 0.2 0.2 - 1.0 mg/dL [facility] Nitrite, Urine Negative Negative [facility] [place] Microscopic Examination See below: [facility] Comment:Microscopic was jem cated and was performed. 09/12/2024 11:4 1 AM EDT 09/12/2024 us Teo Lea MD LAB URINE ORDERABLES Final Re sult [facility] [address] [place] [address] * CBC (09/12/2024 11:41 AM EDT) WBC 4.2 3.4 - 10.8 x10E3/uL [facility] RBC 4.29 3.77 - 5.28 x10E6/uL [facility] Hemoglobin 13.0 11.1 - 15.9 g/dL [facility] Hematocrit 40.2 34.0 - 46.6 % [facility] MCV 94 79 - 97 fL [facility] MCH 30.3 26.6 - 33.0 pg [facility] MCHC 32.3 31.5 - 35.7 g/dL [facility] RDW 12.1 11.7 - 15.4 % [facility] Platelets 276 150 - 450 x10E3/uL [facility] 09/12/2024 11:4 1 AM EDT 09/12/2024 Teo Lea MD LAB BLOOD ORDERABLES Final Re sult [facility] [address] [place] [address] * Urine Culture (09/12/2024 11:41 AM EDT) Culture Result, Urine Final report [facility] 09/12/2024 11:4 1 AM EDT 09/12/2024 Comment: Teo Lea MD LAB URINE ORDERABLES Final Re sult Performing Organization Address City/[facility]/ZIP Co de Phone Number [facility] [address], [address] [place] [address] * PTH, Intact (09/12/2024 11:41 AM EDT) PTH 28 15 - 65 pg/mL [facility] 09/12/2024 11:4 1 AM EDT 09/12/2024 Teo Lea MD LAB BLOOD ORDERABLES Final Re sult [facility] [address] [place] [address] * Magnesium (09/12/2024 11:41 AM EDT) Magnesium 2.0 1.6 - 2.3 mg/dL [facility] 09/12/2024 11:4 1 AM EDT 09/12/2024 Teo Lea MD LAB BLOOD ORDERABLES Final Re sult [facility] [address] [place] [address] * (ABNORMAL) Renal Function Panel (09/12/2024 11:41 AM EDT) Glucose 99 70 - 99 mg/dL [facility] BUN 16 8 - 27 mg/dL [facility] Creatinine 0.99 0.57 - 1.00 mg/dL [facility] eGFR CKD-EPI CR 2020 62 >59 mL/min/1.7 3 [facility] BUN/Creatinine Ratio 16 12 - 28 [facility] Sodium 136 134 - 144 mmol/L [facility] Potassium 4.2 3.5 - 5.2 mmol/L [facility] Chloride 99 96 - 106 mmol/L [facility] Bicarbonate (CO2) 19(L) 20 - 29 mmol/L [facility] Calcium 9.4 8.7 - 10.3 mg/dL [facility] Phosphorus 3.2 3.0 - 4.3 mg/dL [facility] Albumin 4.2 3.9 - 4.9 g/dL [facility] 09/12/2024 11:4 1 AM EDT 09/12/2024 Teo Lea MD LAB BLOOD ORDERABLES Final Re [facility] Organization Address City/State/ZIP Co de Phone Number [facility] [address] [place] [address] from Last [address] [place] [address] [place] [address] [place] Care Teams Counter Cutter Relationship Specialty Start Date End Date Anila Saha MD [address] [place] [address] PCP - General 04/18/20
--- OUTSIDE RECORDS SUMMARY | 2024-11-12 06:16 | XMS_ITS | Patient Health Record ---
Author Organization [facility] Address [address] [place] [address] Care Team Providers Care Portable Power Tool Repairer Name Role Phone Maria A GILLILAND, Dominique Primary Care Provider Carlos Wheeler Unavailable [phone] Allergies Allergen (clinical drug ingredient) Drug/Non Drug Allergy documented on EMR Reaction Allergy Type Onset Date Status Keflex Unknown Drug Allergy Active Reason For Referral No Information Medications Medication SIG (Take, Route, Frequency, Duration) Notes Start Date End Date Status Atorvastatin Calcium 20 MG 1 tablet Oral ly Once a day for 30 day(s) Active LORazepam 1 MG 1 tablet at bedtime as needed Orally Once a day Active Lactulose 10 GM/15ML 30 ml Orally twice a day Active Vitamin D (Ergocalciferol) 16981 UNIT 1 capsule Orally once a week as directed Active Nortriptyline HCl 10 MG 2 capsule Orally Once a day Active Lyrica 100 MG 1 capsule Orally Thr ee times a day Active Tylenol Extra Strength 500 MG 1 tablet as needed Orally every 6 hrs Active Captopril 25 MG 1 tablet 1 hour befo re or 2 hours after a meal Orally Twice a day Active Levothyroxine Sodium 75 MCG 1 tablet on an empty stomach in the morning Orally Once a day for 30 day(s) Active amLODIPine Besylate 5 MG 1 tablet Orally Once a day for 30 day(s) Active busPIRone HCl 5 MG 1/2 tablet Orally as directed Active Immunizations Vaccine Route Administration Date Status Comme nts Influenza Unknown 01/14/2018 Administered Social History Tobacco Use: Social History Observation Description Date Details (start date - stop date) Never Smoker NA - NA Tobacco Use/Smoking Question Answer Notes Patient is a nonsmoker Alcohol Screen Question Answer Notes Did you have a drink containing alcohol in the p ast year? No Points 0 Interpretation Negative Section Notes: Nonsmoker; no sig alcohol Problems Problem Type SNOMED Code ICD Code Onset Dates Problem Status W/U Status Risk Notes Problem 203015333 Encounter for screening for malignant neoplasm of colon (Z12.11) Active confirmed Problem 795836543410572 Preprocedural examination (Z01.818) Active confirmed Problem 56651622 Constipation, unspecified constipation type (K59.00) Active confirmed Plan Of Treatment Future Test Test Name Order Date COLONOSCOPY 07/11/2018 Insurance Providers Payer Name Payer Address Payer Phone Subscriber Number Group Number Insured Name Patient Relationship to Insured Coverage Start Date Coverage End Date MEDICARE OF [place] [address] [place] [address] [id number] VINNY TSANG Self - patient is the insured [employer] [address] [place] [address] [id number] VINNY TSANG Self - patient is the insured [employer] [address] [place] [address] [phone] [id number] VINNY TSANG Self - patient is the insured Medical (General) History Medical History History ICD Code Hypertension Depression Hypothyroidism Denies [place],DM,CVA,Lung disease,renal dise ase Colonoscopy 05/2009 was negat aug[place] for evaluation of anemia, but did reveal some melanosis coli, diverticulosis, and internal hemorrhoids; she had a screening colonoscopy in 2007 which was negative UTI, Hyponatremia Neck pain/Radiculopathy Osteopenia Back pain Upper endoscopy for the eval uation of her anemia revealed only a small hiatal hernia, mild gastritis, negative for H. pylori, and normal duodenal biopsies without evidence of celiac disease Surgical History Surgery Date(Month/Year) Cholecystectomy Foot surgery Shoulder arthroscopy Back surgery x 2
--- OUTSIDE RECORDS SUMMARY | 2024-11-12 06:16 | XMS_ITS | Clinical Summary ---
Author Organization [facility] Address [address] [address] Phone Care Team Providers Care Financial Sales Professional Name Role Phone Dominique Saha MD Primary Care Provider Allergies Active Allergy Reactions Criticality Noted Date Comments Cephalexin Other (See Comments) 09/14/2020 Medications polyethylene glycol (MIRALAX) 17 gram/dose powder 17 g. Active amLODIPine (NORVASC) 5 MG tablet Take 1 tablet by mouth every morning. 10/01/2022 Active atorvastatin (LIPITOR) 20 MG tablet Take 1 tablet by mouth every morning. 08/29/2022 Active buPROPion (WELLBUTRIN XL) 300 MG ER 24 hr tablet Take 2 tablets by mouth every morning. 10/17/2022 Active captopril (CAPOTEN) 25 MG tablet TAKE 1 TABLET (25 MG TOTAL) BY MOUTH IN THE MORNING AND IN THE EVENING 09/12/2022 Active levothyroxine (SYNTHROID, LEVOTHROID) 75 MCG tablet Take 75 mcg by mouth every morning. 08/23/2022 Active LORazepam (ATIVAN) 1 MG tablet Take 1 tablet by mouth every morning. 10/28/2022 Active nortriptyline (PAMELOR) 50 MG capsule Take 1 capsule by mouth every morning. 09/14/2022 Active psyllium (METAMUCIL) 0.4 gram capsule Take by mouth 2 (two) times a day. Active Active Problems No known active problems Social History Tobacco Use Types Packs/Day Years Used Date Smoking Tobacco: Never Assessed Education Answer Date Recorded Are you interested in more education? Not on natacha e 11/27/2022 Are you concerned about learning? Not on file 11/27/2022 No 11/27/2022 No 11/27/2022 Digital Access Answer Date Recorded No 11/27/2022 No 11/27/2022 Reliable internet access at home? Not on file 11/27/2022 Device with a working camera? Not on file Comments Unknown Sex and Gender Information Value Date Recorded Sex Assigned at Not on file Legal Sex Female 9:53 PM EDT Gender Identity Not on file Sexual Orientation Not on file Last Filed Vital Signs Vital Sign Reading Time Taken Comments Blood Pressure 175/97 11/27/2022 9:46 AM EDT Pulse 98 11/27/2022 9:46 AM EDT Temperature 36.7 C (98 F) 11/27/2022 9:46 AM EDT Respiratory Rate 16 11/27/2022 9:46 AM EDT Oxygen Saturation 100% 11/27/2022 9:46 AM EDT Inhaled Oxygen Concentration - - Weight - - Height - - Body Mass Index - - Plan of Treatment Health Maintenance Due Date Last Done Comments Adult Td,Tdap Booster 1955 CREATININE LEVEL 1956 LIPID PANEL 1956 POTASSIUM LEVEL 1956 TSH LEVEL 1956 DEPRESSION SCREENING 1968 SMOKING Hx and SMOKELESS TOB ACCO SCREENING 1969 HEPATITIS C SCREENING 1974 MAMMOGRAM 1996 COLOGUARD 2001 COLONOSCOPY 2001 COLORECTAL CANCER SCREENING 2001 FIT TEST 2001 FOBT 2001 SIGMOIDOSCOPY 2001 VIRTUAL COLONOSCOPY 2001 PNEUMOCOCCAL VACCINES (50+ y ears) (1 of 1 - PCV) 2006 ZOSTER VACCINES (1 of 2) 2006 OSTEOPOROSIS SCREENING INITI AL (ONE-TIME) 2021 COVID-19 VACCINE ( - 2023-2 5 season) 2023 RSV VACCINE (1 - 1-dose 75+ series) 09/20/2031 HEPATITIS A VACCINES Aged Out No long er eligible based on patient's age to complete this topic HIB VACCINES Aged Out No longer eligi ble based on patient's age to complete this topic MENINGOCOCCAL VACCINES (ACWY) Aged Out No longer eligible based on patient's age to complete this topic MENINGOCOCCAL VACCINES (B) Aged Out N o longer eligible based on patient's age to complete this topic Medical Devices Not on file Insurance MEDICARE PART A & B Member Subscriber Plan / Payer ( fective 2014-Present) Name:Kimberly Escobar Member ID:[id number] Relation to Subscriber:Self Name:EmilyyanelyKimberly skaggs Subscriber ID:[id number] Payer ID:[id number] Group ID:Not on file Type:Medicare Address: [facility] [address] [place], [place] [phone] Pricing Assistant [employer] MEDICARE PART A & B Member Subscriber Plan / Payer ( fective 2014-Present) Name:EmilyreginoKimberly ricci Member ID:[id number] Relation to Subscriber:Self Name:EmilyjuanKimberly Subscriber ID:[id number] Payer ID:[id number] Group ID:Not on file Type:Medicare Address: [facility] [address] [place] [phone] Pricing Assistant [employer] MEDICARE PART A & B Member Subscriber Plan / Payer ( fective 2014-Present) Name:Kimberly Escobar Member ID:[id number] Relation to Subscriber:Self Name:Kimberly Escobar Subscriber ID:[id number] Payer ID:[id number] Group ID:Not on file Type:Medicare Address: [facility] [address] [place] [address] MEDICARE PART A & B Member Subscriber Plan / Payer ( fective 2014-Present) Name:Kimberly Escobar Member ID:[id number] Relation to Subscriber:Self Name:Kimberly Escobar Subscriber ID:[id number] Payer ID:[id number] Group ID:Not on file Type:Medicare Address: [facility] [address] [place] [address] Member Subscriber Plan / Payer (Ef fective 2014-Present) Name:Kimberly Escobar Member ID:[id number] Relation to Subscriber:Self Name:Kimberly Escobar Subscriber ID:[id number] Payer ID:[id number] Group ID:Not on file Type:Medicare Address: [facility] [address] [place] [address] [employer] MEDICARE PART A & B Member Subscriber Plan / Payer ( fective 2014-Present) Name:Kimberly Escobar Member ID:[id number] Relation to Subscriber:Self Name:Kimberly Escobar Subscriber ID:[id number] Payer ID:[id number] Group ID:Not on file Type:Medicare Address: [facility] [address] [place] [address] MEDICARE PART A & B [employer] MEDICARE PART A & B Member Subscriber Plan / Payer ( fective 2014-Present) Name:Kimberly Escobar Member ID:[id number] Relation to Subscriber:Self Name:Kimberly Escobar Subscriber ID:[id number] Payer ID:[id number] Group ID:Not on file Type:Medicare Address: [facility] [address] [place] [address] [employer] MEDICARE PART A & B Member Subscriber Plan / Payer (Ef fective 2014-Present) Name:Kimberly Escobar Member ID:[id number] Relation to Subscriber:Self Name:EmilyyanelynicoletoniKimberly ricci Subscriber ID:[id number] Payer ID:[id number] Group ID:Not on file Type:Medicare Address: [facility] [address] [place] [address] [employer] Care Teams Financial Sales Professional Relationship Specialty Start Date End Date Dominique Saha MD [address] [facility] [place] [address] PCP - General Internal Medicine 11/27/22 Additional Source Comments The information contained in this document represents components of the legal health record. It is not the complete legal health record.[facility]
--- OUTSIDE RECORDS SUMMARY | 2024-11-12 06:16 | XMS_ITS | Patient Health Record ---
Author Organization [facility] Address [address] [place] [address] Care Team Providers Care Svp Business Development Name Role Phone VANI [facility] Unavailable [phone] Allergies Allergen (clinical drug ingredient) Drug/Non Drug Allergy documented on EMR Reaction Allergy Type Onset Date Status Keflex Unknown Drug Allergy Active captopril Captopril Unknown Drug Allergy Active Reason For Referral No Information Medications Medication SIG (Take, Route, Frequency, Duration) Notes Start Date End Date Status Tylenol Active Ibuprofen Active Metamucil Active Nortriptyline HCl 50 mg qd Ac tive Atorvastatin Calcium 20 MG 1 tablet Orally Once a day Active lamoTRIgine 25 MG 1 tablet Orally 2 tab 50 mg Active buPROPion HCl 100 MG 1 tablet Orally Twice a day 600MG Active Vitamin D 2000 units Active Captopril 25 MG 1 tablet 1 hour before or 2 hours after meals Orally Twice a day Not-Taking amLODIPine Besy-Benazepril HCl 2.5-10 MG as directed Orally Not-Takin g Flecainide Acetate 50 MG take 1 tablet Orally Twice daily; Duration: 30 days 07/14/2024 Active Levothyroxine Sodium 75 MCG 1 tablet in the morning on an empty stomach Orally Once a day Active LORazepam 1 MG 1 tablet at bedtime as needed Orally Once a day Active amLODIPine Besylate 10 MG 1 tablet Orally Once a day Active Problems Problem Type SNOMED Code ICD Code Onset Dates Problem Status W/U Status Risk Notes Problem DLD Mixed hyperlipidemia (E78.2) Active confirmed Discussed dietary and lifestyle changes including avoiding high fat animal proteins and plant based alternatives as well as good sources of fat and exercise 120-150 mins a week and will monitor response. Problem Hyperlipidemia (50082893) Hyperlipidemia, unspecified (E78.5) Active confirmed Problem HTN Essential (primary) hypertension (I10) Active confirmed Blood pressure is not well controlled but she developed angioedema to ACEI and her PCP is adjusting her meds. Cleared to start her carvedilol as ordered. 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 06/2024 EM showed no AF, 23% tachy burden, 9% PVC burden, 1% PAC burden. 53 triggered events correlated with SR/ST with PVCs therefore we'll start her on Flecainide. Patient reports improvement in her symptoms, will obtain an EM before her next follow up. Problem Palpitations (75768437) Palpitations (R00.2) Active confirmed Will obtain a EM and adviced on exercise, hydration avoiding stimulants and sleeping 6-8 hours a day and avoiding alcohol and will follow. 06/2024 EM showed no AF, 23% tachy burden, 9% PVC burden, 1% PAC burden. 53 triggered events correlated with SR/ST with PVCs. Problem Essential hypertension (46137700) Essential (primary) hypertension (I10) Active confirmed Problem Angina pectoris (163481766) Other forms of angina pectoris (I20.89) Active confirmed CTA showed a calcium score of 0 therefore we'll focus on prevention. Vital Signs Heart Rate 98 /min 07/14/2024 Respiratory Rate 18 /min 07/14/2024 Oximetry 99 % 07/14/2024 Blood pressure diastolic 80 mm Hg 07/14/2024 Height 66 in 07/14/2024 Blood pressure systolic 150 mm Hg 07/14/2024 Weight 140.4 lbs 07/14/2024 BMI 22.66 kg/m2 07/14/2024 Encounters Encounter Location Date Provider Diagnosis [facility] [address] [place] [address] 06/23/2024 CASSIE LUDWIG MD Other forms of angin a pectoris I20.89 ; Palpitations R00.2 ; HTN Essential (primary) hypertension I10 and DLD Mixed hyperlipidemia E78.2 [facility] [address] [place] [address] 07/14/2024 CASSIE LUDWIG MD Other forms of angin a pectoris I20.89 ; Ventricular premature depolarization I49.3 ; HTN Essential (primary) hypertension I10 and DLD Mixed hyperlipidemia E78.2 [facility] [place] [address] [place] [address] 09/15/2024 CASSIE LUDWIG MD Other forms of angin a pectoris I20.89 ; Ventricular premature depolarization I49.3 ; HTN Essential (primary) hypertension I10 and DLD Mixed hyperlipidemia E78.2 [facility] [place] [address] [place] [address] 07/20/2024 CASSIE LUDWIG MD [facility] [place] [address] [place] [address] 07/21/2024 CASSIE LUDWIG MD [facility] [place] [address] [place] [address] 08/12/2024 CASSIE LUDWIG MD Ventricular prematur e depolarization I49.3 [facility] [place] [address] [place] [address] 08/13/2024 CASSIE LUDWIG MD Assessments Encounter Date Diagnosis (ICD Code) Assessment Notes Treatment Notes Treatment Clinical Notes Section Notes 06/23/2024 Palpitations (ICD-10 - R00.2) Will obtain a EM and adviced on exercise, hydration avoiding stimulants and sleeping 6-8 hours a day and avoiding alcohol and will follow. 06/23/2024 Other forms of angina pectoris (ICD-10 - I20.89) CTA showed a calcium score of 0 therefore we'll focus on prevention and her LDL 107 07/14/2024 Ventricular premature depolarization (ICD-10 - I49.3) Will obtain a EM and adviced on exercise, hydration avoiding stimulants and sleeping 6-8 hours a day and avoiding alcohol. 06/2024 EM showed no AF, 23% tachy burden, 9% PVC burden, 1% PAC burden. 53 triggered events correlated with SR/ST with PVCs therefore we'll start her on Flecainide and will follow. 07/14/2024 Other forms of angina pectoris (ICD-10 - I20.89) CTA showed a calcium score of 0 therefore we'll focus on prevention and her LDL 107 08/12/2024 Ventricular premature depolarization (ICD-10 - I49.3) Will obtain a EM and adviced on exercise, hydration avoiding stimulants and sleeping 6-8 hours a day and avoiding alcohol. 06/2024 EM showed no AF, 23% tachy burden, 9% PVC burden, 1% PAC burden. 53 triggered events correlated with SR/ST with PVCs therefore we'll start her on Flecainide and will follow. 09/15/2024 Ventricular premature depolarization (ICD-10 - I49.3) Will obtain a EM and adviced on exercise, hydration avoiding stimulants and sleeping 6-8 hours a day and avoiding alcohol. 06/2024 EM showed no AF, 23% tachy burden, 9% PVC burden, 1% PAC burden. 53 triggered events correlated with SR/ST with PVCs therefore we'll start her on Flecainide. Patient reports improvement in her symptoms, will obtain an EM before her next follow up. 09/15/2024 Other forms of angina pectoris (ICD-10 - I20.89) CTA showed a calcium score of 0 therefore we'll focus on prevention. 07/14/2024 HTN Essential (primary) hypertension (ICD-10 - I10) Blood pressure is not well controlled but she developed angioedema to ACEI and her PCP is adjusting her meds. 09/15/2024 HTN Essential (primary) hypertension (ICD-10 - I10) Blood pressure is not well controlled but she developed angioedema to ACEI and her PCP is adjusting her meds. Cleared to start her carvedilol as ordered. 06/23/2024 HTN Essential (primary) hypertension (ICD-10 - I10) Blood pressure is well controlled on current regimen, will continue to follow with goal BP less than 130/80. 06/23/2024 DLD Mixed hyperlipidemia (ICD-10 - E78.2) Discussed dietary and lifestyle changes including avoiding high fat animal proteins and plant based alternatives as well as good sources of fat and exercise 120-150 mins a week and will monitor response. 07/14/2024 DLD Mixed hyperlipidemia (ICD-10 - E78.2) Discussed dietary and lifestyle changes including avoiding high fat animal proteins and plant based alternatives as well as good sources of fat and exercise 120-150 mins a week and will monitor response. 09/15/2024 DLD Mixed hyperlipidemia (ICD-10 - E78.2) Discussed dietary and lifestyle changes including avoiding high fat animal proteins and plant based alternatives as well as good sources of fat and exercise 120-150 mins a week and will monitor response. Plan Of Treatment Pending Test Test Name Order Date 7 day HM/EM/MCOT 06/23/2024 7 day HM/EM/MCOT 09/15/2024 Next Appt Details Provider Name:CASSIE Zimmer MD, 01/12/2025 11:30:00 AM, [address], [facility] [address], [place], [address], Insurance Providers Payer Name Payer Address Payer Phone Subscriber Number Group Number Insured Name Patient Relationship to Insured Coverage Start Date Coverage End Date Medicare [address] [place] [address] [id number] Kimberly Sosa Self - patient is the insured [facility] [address] [place] [address] [phone] [id number] Kimberly Sosa Self - patient is the insured Medical (General) History Medical History History ICD Code HTN Essential (primary) hypertension I10 DLD Mixed hyperlipidemia E78.2 Hospitalization History Reason Date(Month/Year) [facility] 06/2024
--- OUTSIDE RECORDS SUMMARY | 2024-11-12 06:16 | XMS_ITS | Clinical Summary ---
Author Organization [facility] Address [address] [place] [address] Care Team Providers Care Health And Wellness Instructor Name Role Phone Dominique Saha MD Primary Care Provider Surgical History Surgery Date Site/Laterality Comments BACK SURGERY 10/20/2020 PROCEDURE: HISTORICAL BACK SURGERY; COMMENT: L3-4 decomp, exploration, L3-S1 fusion BACK SURGERY 08/24/2013 PROCEDURE: HISTORICAL BACK SURGERY; COMMENT: L4-5 L5-S1 exploration and revision Medical History Medical History Date Comments Hyperlipidemia DX:Hyperlipidemi a Essential hypertension DX:Essent ial hypertension Anxiety state DX:Anxiety state Depressive disorder DX:Depressiv e disorder Osteoporosis DX:Osteoporosis Social History Tobacco Use Types Packs/Day Years Used Date Smoking Tobacco: Never Smokeless Tobacco: Never Comments Unknown Sex and Gender Information Value Date Recorded Sex Assigned at Not on file Legal Sex Female 7:42 AM EST Gender Identity Not on file Sexual Orientation Not on file Obstetrics History Last Filed Vital Signs Vital Sign Reading Time Taken Comments Blood Pressure - - Pulse - - Temperature - - Respiratory Rate - - Oxygen Saturation - - Inhaled Oxygen Concentration - - Weight 65.8 kg (145 lb) 10/20/2021 12:58 PM EDT Height 170.2 cm (5' 7 ) 10/20/2021 12:58 PM EDT Body Mass Index 22.71 10/20/2021 12:58 PM EDT Plan of Treatment Health Maintenance Due Date Last Done Comments Breast Cancer Screening 1955 DTaP,Tdap,and Td Vaccines (1 - Tdap) 09/20/1975 Pneumococcal Vaccine: 50+ Ye ars (1 of 1 - PCV) 2006 Zoster Vaccines (1 of 2) 2006 Colorectal Cancer Screening: Colonoscopy 03/11/2022 Falls Risk Assessment 03/11/2022 Hepatitis C Screening 03/11/2022 Osteoporosis Screening (Bone Density Screening) 03/11/2022 Social Influencers of Health Screening 03/11/2022 COVID-19 Vaccine (1 - 2023-2 5 season) 2023 Depression Screening 04/08/2024 Influenza Vaccine (#1) 2024 RSV Immunization Adult Patie nts (1 - 1-dose 75+ series) 09/20/2031 HIB Vaccines Aged Out No longer eligi ble based on patient's age to complete this topic HPV Vaccines Aged Out No longer eligi ble based on patient's age to complete this topic Hepatitis A Vaccines Aged Out No long er eligible based on patient's age to complete this topic Hepatitis B Vaccines Aged Out No long er eligible based on patient's age to complete this topic IPV Vaccines Aged Out No longer eligi ble based on patient's age to complete this topic MMR Vaccines Aged Out No longer eligi ble based on patient's age to complete this topic Meningococcal ACWY Vaccine Aged Out N o longer eligible based on patient's age to complete this topic Meningococcal B Vaccine Aged Out No l onger eligible based on patient's age to complete this topic RSV Immunization Patients Un jennifer 20 months Aged Out No longer eligible b ased on patient's age to complete this topic Varicella Vaccines Aged Out No longer eligible based on patient's age to complete this topic Care Teams Health And Wellness Instructor Relationship Specialty Start Date End Date Dominique Saha MD [address] [place] [address] PCP - General Internal Medicine 12/09/20
[2024-11-12 08:41] LABS: Alanine Aminotransferase 28 U/L (0-31); Anion Gap 11 (12-20); Aspartate Amino Transferase 31 U/L (5-31); Blood Urea Nitrogen 13 mg/dL (9-16); Calcium 9.2 mg/dL (8.4-10.2); Carbon Dioxide 29 mmol/L (22-29); Chloride 104 mmol/L (96-108); Cholesterol 199 mg/dL (<200); Estimated Glomerular Filt Rate 52; HDL Cholesterol 84 mg/dL (>40); Potassium 4.4 mmol/L (3.3-5.1); Sodium 140 mmol/L (135-145); Triglycerides 52 mg/dL (<150)
[2024-11-12 08:51] LABS: Free T4 (Free Thyroxine) 1.02 ng/dL (0.71-1.85); Thyroid Stimulating Hormone 0.93 uIU/mL (0.32-4.0)
== END 2024-11-12 06:15 | disposition home or self-care (01) ==
LOC: HO.LAB 06:14
PROVIDERS: PCP Internal Medicine; Visit Provider Internal Medicine
DX: I10 Essential (primary) hypertension (principal); E78.5 Hyperlipidemia, unspecified; E03.9 Hypothyroidism, unspecified; M85.89 Other specified disorders of bone density and structure, multiple sites
CPT/HCPCS: 36415; 80048; 80061; 82306; 84439; 84443; 84450; 84460

== ENCOUNTER 2024-11-13 08:47 | Outpatient (AMB) | payer MEDICARE, OTHER, SELFPAY ==
--- NOTE | 2024-11-13 08:57 | MHC.PC.OV ---
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: No Accompanied by: Self / Same As Patient Allergies cephalexin (From Keflex) Allergy (Mild, Verified 11/13/24 09:20) RASH Medication List - Last Reconciled 11/13/24 by Dominique Saha MD acetaminophen (Tylenol Extra Strength) 500 mg PO Q6H PRN amlodipine 10 mg PO DAILY atorvastatin 20 mg PO DAILY carvedilol 3.125 mg PO BID cholecalciferol (vitamin D3) 50 mcg PO DAILY docusate sodium (Stool Softener) 100 mg PO DAILY flecainide 50 mg PO BID ibuprofen 800 mg PO Q12H PRN lamotrigine 50 mg PO DAILY levothyroxine (Synthroid) 75 mcg PO QAM lorazepam 1 mg PO DAILY PRN nortriptyline 50 mg PO BEDTIME polyethylene glycol 3350 (Miralax) 17 grams PO DAILY psyllium husk (with sugar) 2 gram (Metamucil Fiber Thin) 2 wafers PO DAILY Tobacco use date assessed: 11/13/24 Fall risk assessment: No Falls in past year Last assessed Fall Risk: 11/13/24 Dental Screening Dental Screen Date: 11/13/24 Did you have a dental visit in the last 12 months?: Yes Did you have a dental problem in the last 6 months where you did not have access to dental care?: No Was dental information given to patient?: Patient has dentist HPI follow up labs HPI Details - The patient is a 69-year-old female presenting with management of chronic conditions including hypertension, hyperlipidemia, and hypothyroidism, as well as concerns related to premature ventricular contractions. - Hypertension: The patient's blood pressure is well-controlled at home, typically in the high 120s, managed with Amlodipine 10 mg daily, increased by Dr. Lea due to previous issues with Lisinopril causing angioedema. - Hyperlipidemia: The patient is on Atorvastatin 20 mg, with LDL cholesterol slightly elevated at 105 mg/dL, but triglycerides have improved significantly. - Hypothyroidism: The patient takes Levothyroxine 75 mcg daily, with a TSH level decreased to 0.93, indicating slightly suppressed thyroid function, but free T4 remains within normal range. - Premature Ventricular Contractions (PVCs): The patient experienced frequent PVCs, leading to a cardiac evaluation and prescription of Carvedilol and Flecainide, stabilizing her heart rate. - Angioedema: The patient experienced facial swelling attributed to Lisinopril, which was discontinued, and was treated with Prednisone at an urgent care facility. [facility] Medical History Osteopenia of multiple sites Failed back syndrome of lumbar spine Lumbar radiculopathy, acute DDD (degenerative disc disease), cervical Dyslipidemia Essential hypertension Acquired hypothyroidism Depression with anxiety Surgical History Hx of cataract surgery H/O vitrectomy Status post lumbar spine operative procedure for decompression of spinal cord H/O cervical spine surgery History of arthroplasty of right shoulder History of cholecystectomy H/O reduction mammoplasty Status post lumbar spine surgery for decompression of spinal cord Family History Father Peripheral vascular disease Myocardial infarction Essential hypertension Social History Housing: House Alcohol intake: never Patient Tobacco Use Status: Former Tobacco user e-Cigarette/Vaping Use: Never Used service: No Current occupational status: retired Cognitive needs: No Hearing needs: No Vision needs: Yes Questionnaire Thrive Questionnaire Date Thrive assessed: 11/03/24 Review of Systems Const Denies fever(s), Denies headache(s), Denies lethargy and Denies weakness Eyes Reports change in vision and Denies eye discharge ENT Denies dizziness, Denies headache(s), Denies nasal congestion, Denies nasal discharge and Denies sore throat Card Denies chest pain, Denies irregular heart rhythm, Denies lightheadedness and Denies dyspnea Resp Denies chest congestion, Denies cough and Denies dyspnea GI Denies abdominal pain, Denies change in bowel habits and Denies heartburn Reports no additional complaints Musc Reports stiffness Skin/Breast Denies lesions and Denies rash Neuro Denies dizziness, Denies headache(s) and Denies weakness Psych Reports no additional complaints and Reports as per HPI Endo Reports no additional complaints, Denies polydipsia and Denies polyuria Gautam/Lymph Denies easy bleeding and Denies easy bruising Aller/Immun Reports no additional complaints Physical exam (Primary Care) Tobacco/Smoking Status: Tobacco use Status Tobacco use date assessed 11/13/24 11/13/24 09:02 Patient Tobacco Use Status Former Tobacco user 11/13/24 09:02 e-Cigarette/Vaping Use Never Used 11/13/24 09:02 Thrive Assessment: Date of Thrive Assessment Date Thrive assessed 11/03/24 11/13/24 09:02 Telehealth Telehealth Telehealth Platform: [employer] Location of provider rendering services: practice address Location of patient: address on file Patient Identification confirmed using: Name, : Yes Telehealth method: video Patient verbally consented to treatment: Yes Patient verbally consented to billing insurance company: Yes Patient informed of any privacy concerns related to visit: Yes Minutes spent on Phone/Video with Pt.: 20 Results Reviewed Results Reviewed: Name: Kimberly Sosa Age/Sex: 69/F : 1955 Unit#: [id number] Attend Dr: Dominique Saha MD Re11/12/24 Status: DEP [facility] SPEC : [id number] PRATIMA: 11/12/24 STATUS: COMP REQ : [id number] RECD: 11/12/[address]: Dominique Saha MD COMP: 11/12/24 ENTERED: 11/12/[address]: ORDERED: Met Prof Fast, AST, ALT, Lipid Panel, Vitamin D 25-OH, Free T4, TSH Test Result Flag Reference Sodium 140 135-145 mmol/L Potassium 4.4 3.3-5.1 mmol/L CL 104 96-108 mmol/L CO2 29 22-29 mmol/L Gap 11 L 12-20 BUN 13 9-16 mg/dL Creat 1.05 0.5-1.4 mg/dL eGFR 52 Chronic Kidney Disease: Estimated GFR < 60 mL/min/1.73m2 Severe Kidney Disease: Estimated GFR < 15 mL/min/1.73m2 FBS 93 60-99 mg/dL CA 9.2 # 8.4-10.2 mg/dL AST (GOT) 31 5-31 U/L ALT (GPT) 28 0-31 U/L Triglyceride 52 <150 mg/dL Desirable Triglyceride: less than 150 mg/dL Borderline High Triglyceride 150-199 mg/dL High Triglyceride: 200-499 mg/dL Very High Triglyceride: greater than or equal to 5OO mg/dL Cholesterol 199 <200 mg/dL Desirable Cholesterol: less than 200 mg/dL Borderline High Cholesterol: 200-239 mg/dL High Cholesterol: greater than 239 mg/dL LDL Calculated 105 H <100 mg/dL Desirable LDL: less than 100 mg/dL Near Optimal/Above Optimal LDL: 110-129 mg/dL Borderline High LDL: 130-159 mg/dL High LDL: 160-189 mg/dL Very High LDL: greater than or equal to 190 mg/dL HDL 84 >40 mg/dL Desirable HDL: greater than 40 mg/dL Note: This HDL assay may give artificially low results in patients with liver disease. Vitamin D 25-OH 45.6 >30 ng/mL Health Based Reference Values* < 20 ng/mL Deficient 20-30 ng/mL Insufficient > 30 ng/mL Sufficient *Mirna CAMPA. N Engl J Med. 2007;357:266-280 There is no well-established upper level of normal vitamin D levels. Some laboratories use 50 ng/mL as an upper limit of normal. However, toxicity is patient-dependent and may occur at any level. Careful correlation with the patient's presentation is necessary and, if there is concern for vitamin D toxicity, treatment should be considered irrespective of the serum level. Care must be taken in interpreting Vitamin D results from different laboratories and methodologies. Published data demonstrated that results from patients undergoing hemodialysis may show a negative bias when tested with various automated 25-OH vitamin D assays when compared to LC-MS/MS. When testing samples from patients whose predominant form of Vitamin D is Vitamin D2, such as patients receiving Vitamin D2 supplementation, results that are subtherapeutic should be confirmed with another method such as LC-MS/MS. Free T4 1.02 0.71-1.85 ng/dL TSH 3rd Gen. 0.93 0.32-4.0 uIU/mL Coding Level of Care Code Tele Est Pt Level 4 (61564) Complex EM visit Add On G2211 Diagnoses Acquired hypothyroidism E03.9 Essential hypertension I10 Dyslipidemia E78.5 Assessment & Plan Assessment & Plan (1) Acquired hypothyroidism: Code(s): E03.9 - Hypothyroidism, unspecified Category: Medical (2) Essential hypertension: Code(s): I10 - Essential (primary) hypertension Category: Medical (3) Dyslipidemia: Code(s): E78.5 - Hyperlipidemia, unspecified Category: Medical Plan The patient's hypertension is managed with Amlodipine 10 mg daily, increased due to previous angioedema with Lisinopril. Her home blood pressure readings are satisfactory, requiring no further adjustments. For hyperlipidemia, the patient remains on Atorvastatin 20 mg. Despite a slight elevation in LDL cholesterol, her triglycerides have improved significantly, and no medication changes are necessary. The patient's hypothyroidism is controlled with Levothyroxine 75 mcg daily. Her TSH is slightly suppressed, but free T4 is within normal limits, indicating adequate thyroid function control. Premature ventricular contractions are managed with Carvedilol and Flecainide, stabilizing her heart rate. 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 Angioedema from Lisinopril has resolved after discontinuation and Prednisone treatment, with no further episodes reported. Patient was informed and verbally consented to the use of an ambient scribe for clinic note documentation during this visit. Orders: Orders Thyroid Peroxidase Antibodies 09/06/25 E03.9 - Hypothyroidism, unspecified, E78.5 - Hyperlipidemia, unspecified, I10 - Essential (primary) hypertension, M85.89 - Other specified disorders of bone density and structure, multiple sites Basic Metabolic Panel Fasting 09/06/25 E03.9 - Hypothyroidism, unspecified, E78.5 - Hyperlipidemia, unspecified, I10 - Essential (primary) hypertension, M85.89 - Other specified disorders of bone density and structure, multiple sites Alanine Aminotransferase 09/06/25 E03.9 - Hypothyroidism, unspecified, E78.5 - Hyperlipidemia, unspecified, I10 - Essential (primary) hypertension, M85.89 - Other specified disorders of bone density and structure, multiple sites Vitamin D 25-OH Total 09/06/25 E03.9 - Hypothyroidism, unspecified, E78.5 - Hyperlipidemia, unspecified, I10 - Essential (primary) hypertension, M85.89 - Other specified disorders of bone density and structure, multiple sites Thyroid Stimulating Hormone 09/06/25 E03.9 - Hypothyroidism, unspecified, E78.5 - Hyperlipidemia, unspecified, I10 - Essential (primary) hypertension, M85.89 - Other specified disorders of bone density and structure, multiple sites Free T4 (Free Thyroxine) 09/06/25 E03.9 - Hypothyroidism, unspecified, E78.5 - Hyperlipidemia, unspecified, I10 - Essential (primary) hypertension, M85.89 - Other specified disorders of bone density and structure, multiple sites Lipid Panel 09/06/25 E03.9 - Hypothyroidism, unspecified, E78.5 - Hyperlipidemia, unspecified, I10 - Essential (primary) hypertension, M85.89 - Other specified disorders of bone density and structure, multiple sites Aspartate Amino Transferase 09/06/25 E03.9 - Hypothyroidism, unspecified, E78.5 - Hyperlipidemia, unspecified, I10 - Essential (primary) hypertension, M85.89 - Other specified disorders of bone density and structure, multiple sites
--- OUTSIDE RECORDS SUMMARY | 2024-11-13 09:02 | XMS_ITS | Clinical Summary ---
Author Organization [facility] Address [address] [facility] [place] [address] Phone Care Team Providers Care Sheet Tester Name Role Phone Anila Saha MD Primary Care Provider [phone] Allergies Active Allergy Reactions Criticality Noted Date [...] 66% ( crippled ) on 05/01/18; initial [place] Back Pain Scale: 63 on 05/01/18; initial [...] 09/22/2024 Refill [facility] [address] [phone] Keyla Padilla 09/16/2024 Office Communication [facility] [address] [phone] Teo Lea MD 09/16/2024 Telephone [facility] [address] [phone] Mary Bowen 09/14/2024 2:00 PM EDT Office Visit [facility] [address] [place] [address] Teo Lea MD Hypertensive disorder (Primary Dx); Stage 3a chronic kidney disease (HCC) 09/12/2024 Orders Only [facility] [address] [address] Teo Lea MD 08/14/2024 Orders Only [facility] [address] [place] [address] Teo Lea MD Stage 3a chronic kidney disease (HCC); Hypertensive disorder from Last 3 Months Family History Medical History Relation Comments Heart disease Father PVD, CAD, [place] Hypertension Father Relation Status Comments Father Mother [...] Visit [facility] [address] [place] [address] Teo Lea MD [address] [facility] [address] [place] [phone] Health Maintenance Due Date Last Done Comments [...] 11:41 AM EDT) Result No growth [facility] 09/12/2024 11:4 1 AM EDT 09/12/2024 us Teo Lea MD LAB MICROBIOLOGY - GENERAL OR DERABLES Final Result [facility] [address] [place] [address] * Microscopic Examination (09/12/2024 11:41 AM EDT) WBC, Urine 0-5 0 - 5 /hpf [facility] RBC, Urine None seen 0 - 2 /hpf [facility] Squamous Epithelial, Urine 0-10 0 - 10 /hpf [facility] Casts None seen None seen /lpf [facility] Bacteria, Urine None seen None seen/Few [facility] 09/12/2024 11:4 1 AM EDT 09/12/2024 Teo Lea MD LAB MICROBIOLOGY - GENERAL OR DERABLES Final Result Performing Organization Address [facility] Co de Phone Number [facility] [address] [place] [address] * (ABNORMAL) Protein, Total, Random Urine w/Creatinine (Protein/Creat Ratio) (09/12/2024 11:41 AM EDT) Creatinine, Ur 35.3 Not Estab. mg/dL [facility] Protein, Ur <4.0 Not Estab. mg/dL [facility] Comment:Verified by repeat analysis Urine Protein/Creatinin e Ratio Comment(A ) 0 - 200 mg/g creat [facility] [place] Comment: This result is below the assay's limit of quantitation indicating a dilute specimen, potentially due to diurnal variation. Consider recollection at a time likely to provide a more concentrated urine. 09/12/2024 11:4 1 AM EDT 09/12/2024 Teo Lea MD LAB URINE ORDERABLES Final Re sult Performing Organization Address [facility] Co de Phone Number [facility] [place] [address] [place] [address] * Urine Albumin / Creatinine Ratio (09/12/2024 11:41 AM EDT) Albumin, Urine <3.0 Not Estab. ug/mL [facility] Albumin/Creatin ine Ratio <8 0 - 29 mg/g creat [facility] Comment: Normal: 0 - 29 Moderately increased: 30 - 300 Severely increased: >300 09/12/2024 11:4 1 AM EDT 09/12/2024 Teo Lea MD LAB URINE ORDERABLES Final Re sult Performing Organization Address City/[facility]/ZIP Co de Phone Number [facility] [address] [place] [address] * Vitamin D 25 Hydroxy (09/12/2024 11:41 AM EDT) Vitamin D, 25-OH, Total 43.8 30.0 - 100.0 ng/mL [facility] Comment: Vitamin D deficiency has been defined by the [place]ucl[place] of Medicine and an Endocrine Society practice guideline as a level of serum 25-OH vitamin D less than 20 ng/mL (1,2). The Endocrine Society went on to further define vitamin D insufficiency as a level between 21 and 29 ng/mL (2). 1. IOM ([place] of Medicine). 2010. Dietary reference intakes for calcium and D. [place]: The National Academies Press. 2. Mirna MF, Yamilet REBOLLAR, Tico MOSS, et al. Evaluation, treatment, and prevention of vitamin D deficiency: an Endocrine Society clinical practice guideline. JCEM. 2010; 96(7):1911-30. 09/12/2024 11:4 1 AM EDT 09/12/2024 Teo Lea MD LAB BLOOD ORDERABLES Final Re sult [facility] [address] [place] [address] * (ABNORMAL) Urinalysis with microscopic (09/12/2024 11:41 AM EDT) Specific [place], Urine 1.008 1.005 - 1.030 [facility] [phone] pH Urine 6.5 5.0 - 7.5 [facility] Color, Urine Yellow Yellow [facility] [phone] Appearance Urine Clear Clear [facility] [place] WBC Esterase Urine 2+(A) Negative [facility] Protein, Ur Negative Negative/Tra ce [facility] Glucose, Ur Negative Negative [facility] Ketones, Urine Negative Negative [facility] [place] Blood Urine Negative Negative [facility] Bilirubin Urine Negative Negative [facility] [place] [phone] Urobilinogen Urine 0.2 0.2 - 1.0 mg/dL [facility] [phone] Nitrite, Urine Negative Negative [facility] [place] [phone] Microscopic Examination See below: [facility] Comment:Microscopic was jem cated and was performed. 09/12/2024 11:4 1 AM EDT 09/12/2024 us Teo Lea MD LAB URINE ORDERABLES Final Re sult [facility] [address] [place] [address] * CBC (09/12/2024 11:41 AM EDT) WBC 4.2 3.4 - 10.8 x10E3/uL [facility] RBC 4.29 3.77 - 5.28 x10E6/uL [facility] Hemoglobin 13.0 11.1 - 15.9 g/dL [facility] Hematocrit 40.2 34.0 - 46.6 % [facility] MCV 94 79 - 97 fL [facility] MCH 30.3 26.6 - 33.0 pg [facility] MCHC 32.3 31.5 - 35.7 g/dL [facility] RDW 12.1 11.7 - 15.4 % [facility] Platelets 276 150 - 450 x10E3/uL [facility] 09/12/2024 11:4 1 AM EDT 09/12/2024 Teo Lea MD LAB BLOOD ORDERABLES Final Re sult [facility] [address] [place] [address] * Urine Culture (09/12/2024 11:41 AM EDT) Culture Result, Urine Final report [facility] 09/12/2024 11:4 1 AM EDT 09/12/2024 Comment: Teo Lea MD LAB URINE ORDERABLES Final Re sult Performing Organization Address City/[facility]/ZIP Co de Phone Number [facility] [address], [address] [place] [address] * PTH, Intact (09/12/2024 11:41 AM EDT) PTH 28 15 - 65 pg/mL [facility] 09/12/2024 11:4 1 AM EDT 09/12/2024 Teo Lea MD LAB BLOOD ORDERABLES Final Re sult [facility] [address] [place] [address] * Magnesium (09/12/2024 11:41 AM EDT) Magnesium 2.0 1.6 - 2.3 mg/dL [facility] 09/12/2024 11:4 1 AM EDT 09/12/2024 Teo Lea MD LAB BLOOD ORDERABLES Final Re sult [facility] [address] [place] [address] * (ABNORMAL) Renal Function Panel (09/12/2024 11:41 AM EDT) Glucose 99 70 - 99 mg/dL [facility] BUN 16 8 - 27 mg/dL [facility] Creatinine 0.99 0.57 - 1.00 mg/dL [facility] eGFR CKD-EPI CR 2020 62 >59 mL/min/1.7 3 [facility] BUN/Creatinine Ratio 16 12 - 28 [facility] Sodium 136 134 - 144 mmol/L [facility] Potassium 4.2 3.5 - 5.2 mmol/L [facility] Chloride 99 96 - 106 mmol/L [facility] Bicarbonate (CO2) 19(L) 20 - 29 mmol/L [facility] Calcium 9.4 8.7 - 10.3 mg/dL [facility] Phosphorus 3.2 3.0 - 4.3 mg/dL [facility] Albumin 4.2 3.9 - 4.9 g/dL [facility] 09/12/2024 11:4 1 AM EDT 09/12/2024 Teo Lea MD LAB BLOOD ORDERABLES Final Re blancat [facility] Organization Address City/State/ZIP Co de Phone Number [facility] [address] [place] [address] from Last [address] [place] [address] [place] [address] [employer], [place] [employer] Care Teams Sheet Tester Relationship Specialty Start Date End Date Anila Saha MD [address] [place] [address] PCP - General 04/18/20
--- OUTSIDE RECORDS SUMMARY | 2024-11-13 09:02 | XMS_ITS | Patient Health Record ---
Author Organization [facility] Address [address] [place] [address] Care Team Providers Care Make Up Artist Name Role Phone VANI GILLILAND [facility] Unavailable [phone] Allergies Allergen (clinical drug ingredient) Drug/Non Drug [...] Problem Status W/U Status Risk Notes Problem Mixed hyperlipidemia (213680345) DLD Mixed hyperlipidemia (E78.2) Active confirmed Discussed dietary and lifestyle changes including avoiding high fat animal proteins and plant based alternatives as well as good sources of fat and exercise 120-150 mins a week and will monitor response. Problem Hyperlipidemia (37717463) Hyperlipidemia, unspecified (E78.5) Active confirmed Problem Essential hypertension (96809992) HTN Essential (primary) hypertension (I10) Active confirmed Blood pressure is not well controlled but she developed angioedema to ACEI and her PCP is adjusting her meds. Cleared to start her carvedilol as ordered. 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 Problem Palpitations (92995681) Palpitations (R00.2) Active confirmed Will obtain a EM and adviced on exercise, hydration avoiding stimulants and sleeping 6-8 hours a day and avoiding alcohol and will follow. 06/2024 EM showed no AF, 23% tachy burden, 9% PVC burden, 1% PAC burden. 53 triggered events correlated with SR/ST with PVCs. Problem Essential hypertension (78326723) Essential (primary) hypertension (I10) Active confirmed Problem Angina pectoris (097592663) Other forms of angina pectoris (I20.89) Active [...] Date Provider Diagnosis [facility] [place] [facility] [address] [place] [address] 06/23/2024 CASSIE LUDWIG MD Other forms of angin a pectoris I20.89 ; Palpitations R00.2 ; HTN Essential (primary) hypertension I10 and DLD Mixed hyperlipidemia E78.2 [facility] [place] [address] [place] [address] 07/14/2024 CASSIE LUDWIG MD Other forms of angin a pectoris I20.89 ; Ventricular premature depolarization I49.3 ; HTN Essential (primary) hypertension I10 and DLD Mixed hyperlipidemia E78.2 [facility] [place] [address] [place] [address] 09/15/2024 CASSIE LUDWIG MD Other forms of angin a pectoris I20.89 ; Ventricular premature depolarization I49.3 ; HTN Essential (primary) hypertension I10 and DLD Mixed hyperlipidemia E78.2 [facility] [place] [address] [place] [address] 07/20/2024 CASSIE LUDWIG MD [facility] [place] [address] [place] [address] 07/21/2024 CASSIE LUDWIG MD [facility] [place] [address] [place] [address] 08/12/2024 CASSIE LUDWIG MD Ventricular prematur e depolarization I49.3 [facility] [place] [address] [place] [address] 08/13/2024 CASSIE LUDWIG MD Assessments Encounter Date [...] 01/12/2025 11:30:00 AM, [address], [facility] [address], [place], [address], Insurance Providers Payer Name Payer Address Payer Phone Subscriber Number Group Number Insured Name Patient Relationship to Insured Coverage Start Date Coverage End Date Medicare [address] [place] [address] [id number] Kimberly Sosa Self - patient is the insured [facility] [address] [place], [place] 1 [phone] [id number] Kimberly Sosa Self - patient is the insured Medical (General) History Medical History History ICD Code HTN Essential (primary) hypertension I10 DLD Mixed hyperlipidemia E78.2 Hospitalization History Reason Date(Month/Year) [facility] 06/2024
--- OUTSIDE RECORDS SUMMARY | 2024-11-13 09:02 | XMS_ITS | Patient Health Record ---
Author Organization [facility] Address [address] [place] [address] Care Team Providers Care Machine Plaster Mixer Name Role Phone Maria A GILLILAND, Dominique Primary Care Provider Carlos Wheeler Unavailable [phone] Allergies Allergen (clinical drug ingredient) Drug/Non Drug [...] twice a day Active Vitamin D (Ergocalciferol) 91157 UNIT 1 capsule Orally once a week [...] Problem Status W/U Status Risk Notes Problem [id number] Encounter for screening for malignant neoplasm of colon (Z12.11) Active confirmed Problem [id number] Preprocedural examination (Z01.818) Active confirmed Problem 08674161 Constipation, unspecified constipation type (K59.00) Active confirmed Plan Of Treatment Future Test Test Name Order Date COLONOSCOPY 07/11/2018 Insurance Providers Payer Name Payer Address Payer Phone Subscriber Number Group Number Insured Name Patient Relationship to Insured Coverage Start Date Coverage End Date MEDICARE OF [place] [address] [place] [address] [id number] VINNY TSANG Self - patient is the insured [employer] [address] [place] [address] [id number] VINNY TSANG Self - patient is the insured [employer] [address] [place] [address] [phone] [id number] VINNY TSANG Self - patient is the insured Medical (General) History Medical History History ICD Code Hypertension Depression Hypothyroidism Denies HI,DM,CVA,Lung disease,renal dise ase Colonoscopy 05/2009 was negat [...]
--- OUTSIDE RECORDS SUMMARY | 2024-11-13 09:02 | XMS_ITS | Clinical Summary ---
Author Organization [facility] Address [address] [place] [address] Care Team Providers Care Progressive Assembler And Fitter Name Role Phone Dominique Saha MD Primary [...] age to complete this topic Care Teams Progressive Assembler And Fitter Relationship Specialty Start Date End Date Dominique Saha MD [address] [place] [address] PCP - General Internal Medicine 12/09/20
--- OUTSIDE RECORDS SUMMARY | 2024-11-13 09:02 | XMS_ITS | Clinical Summary ---
Author Organization [facility] Address [address] [place] [address] Care Team Providers Care Engine Watchman Name Role Phone Dominique Saha MD Primary Care Provider [phone] Social History Tobacco Use Types Packs/Day Years [...] age to complete this topic Care Teams Engine Watchman Relationship Specialty Start Date End Date Dominique Saha MD [address] [place] [address] PCP - General Internal Medicine 08/29/20
== END 2024-11-13 13:17 | disposition home or self-care (01) ==
LOC: HO.HMCC 08:47
PROVIDERS: PCP Internal Medicine; Visit Provider Internal Medicine
DX: E03.9 Hypothyroidism, unspecified (principal); I10 Essential (primary) hypertension; E78.5 Hyperlipidemia, unspecified